=== PATIENT | female | born 1955 | race Two or more races ===

== ENCOUNTER 2016-04-22 16:48 | Inpatient (IN) | payer MEDICAID ==
[~2016-04-22] VITALS: Ht 149.9 cm; Wt 49.9 kg
[2016-04-22 18:54] LABS: BASOPHILS 0.3 % (0.0-2.0); EOSINOPHILS 0.5 % (0-7); HEMATOCRIT 42.9 % (36.0-48.0); HEMOGLOBIN 14.9 g/dL (12-16); IMMATURE GRANULOCYTES 0.1 % (0-5); LYMPHOCYTES 29.9 % (15-50); MCH 31.6 pg (26.0-34.0); MCHC 34.7 g/dL (31.0-37.0); MCV 91.1 fL (80.0-100.0); MEAN PLATELET VOLUME 10.4 fL (7.4-10.4); MONOCYTES 4.4 % (2-11); NEUTROPHILS 64.8 % (40-80); PLATELET COUNT 222 10x3/uL (130-400); RBC 4.71 10x6/uL (4.00-5.40); RDW 12.5 % (11.5-14.5); WBC 7.6 10x3/uL (4.8-10.8)
[2016-04-22 19:24] LABS: ALBUMIN 4.3 g/dL (3.4-5.0); ALKALINE PHOSPHATASE 193 U/L (46-116); ALT (SGPT) 42 U/L (10-68); BILIRUBIN - TOTAL 0.98 mg/dL (0.2-1.3); CALC OSMOLALITY 285 mosm/kg (275-300); CALCIUM 9.1 mg/dL (8.5-10.1); CARBON DIOXIDE 27.5 mmol/L (21.0-32.0); CHLORIDE - SERUM 92 mmol/L (98-107); CREATININE - SERUM 0.7 mg/dL (0.6-1.3); PROTEIN - SERUM 8.3 g/dL (6.4-8.2); SODIUM 132 mmol/L (136-145); UREA NITROGEN 10 mg/dL (7-18); eGFR NON AFRICAN AMERICAN 90 mL/min (90-120)
[2016-04-22 19:29] LABS: GLUCOSE 493 mg/dL (74-106)
[2016-04-22 22:32] LABS: APPEARANCE CLEAR (CLEAR); COLOR YELLOW (YELLOW)
[2016-04-22 22:33] LABS: BILIRUBIN NEGATIVE (NEGATIVE); GLUCOSE 1000 mg/dL (NEGATIVE); KETONE MODERATE mg/dL (NEGATIVE); LEUKOCYTE ESTERASE NEGATIVE (NEGATIVE); NITRITE NEGATIVE (NEGATIVE); PROTEIN NEGATIVE (NEGATIVE); UROBILINOGEN NORMAL (NORMAL)
[2016-04-22 23:48] LABS: HEMOGLOBIN A1C 12.6 % (4.8-6.0); THYROID STIMULATING HORMONE 0.36 uIU/mL (0.36-3.74)
--- NOTE | 2016-04-23 01:30 | NUR ---
RECEIVED PATIENT FROM [facility] TO ROOM 1219. INTRODUCED SELF. ROUTINE INITIAL ASSESSMENT AND HISTORY DONE. COMPLAINS OF EPIGASTRIC PAIN WITH Dx OF DIABETES. ORIENTED TO ROOM AND BED CONTROLS. PLAN OF CARE INITIATED.
[2016-04-23 01:32] VITALS: BP 128/70
--- NOTE | 2016-04-23 02:08 | NUR ---
PAIN LEVEL "8"/10 FROM ABD. DILAUDID 1mg IV GIVEN FOR PAIN CONTROL.
--- NOTE | 2016-04-23 04:05 | NUR ---
EYES CLOSED. LEFT UNDISTURBED.
--- NOTE | 2016-04-23 05:05 | NUR ---
PAIN LEVEL "8"/10 FROM EPIGASTRIC. DILAUDID 1mg IV GIVEN. SEE E-MAR. V/S STABLE.
[2016-04-23 05:10] VITALS: BP 133/69
--- NOTE | 2016-04-23 06:27 | NUR ---
FSBS 338mg/dl. HUMALOG INSULIN GIVEN PER SLIDING SCALE. SLEPT FAIRLY DURING THE NIGHT. CONTINUING PLAN OF CARE.
--- NOTE | 2016-04-23 07:40 | NUR ---
PT WAS RECEIVED THIS AM LYING IN BED. VSS. PT OFFERS NO COMPLAINTS. SHE STATES SHE IS A DIABETIC AND TAKES MEDS AT HOME THAT SHE IS NOT ON HERE. SHE HAS AN IV R FOREARM WHICH IS PATENT. NS INFUSING @ 125 CC/HR. HER BS EARLIER THIS AM WAS 338 AND SHE WAS GIVEN 12 UNITS OF HUMALOG INSULIN. GEN- AWAKE AND ALERT- LUNGS- CLEAR. HEART- RRR. ABD - SOFT NOT. BS + EXT- NO EDEMA. PULSES PALPABLE. BED IS LOW. CALL LIGHT IN REACH AND SIDE RAILS UP X 2.
--- NOTE | 2016-04-23 08:15 | NUR ---
PT REQUESTED PAIN MED. SHE STATES PAIN IS A 08/26. DILAUDID 1MG IV GIVEN FOR HER EPIGASTRIC AND LEFT SIDE PAIN. OTHER AM MEDS GIVEN ALSO.
[2016-04-23] MEDS ORDERED: ZESTRIL20 MG PO (10:09)
[2016-04-23] MEDS ORDERED: GLUCOVANCE 2.5-1 TAB PO (10:11)
[2016-04-23] MEDS ORDERED: NEURONTIN 300300 MG PO (10:14)
[2016-04-23] MEDS ORDERED: LEVEMIR100 U/M1 SC (10:17)
--- NOTE | 2016-04-23 10:20 | NUR ---
reviewed home medications with Kylee ROMAN with copy of med received from Kylee and again with patient per her report and reviewed after entering on med rec list. Pt denies needs at this time.
[2016-04-23 12:17] LABS: BASOPHILS 0.1 % (0.0-2.0); EOSINOPHILS 1.1 % (0-7); HEMATOCRIT 40.4 % (36.0-48.0); HEMOGLOBIN 13.9 g/dL (12-16); IMMATURE GRANULOCYTES 0.1 % (0-5); LYMPHOCYTES 37.3 % (15-50); MCH 31.3 pg (26.0-34.0); MCHC 34.4 g/dL (31.0-37.0); MONOCYTES 4.3 % (2-11); NEUTROPHILS 57.1 % (40-80); PLATELET COUNT 193 10x3/uL (130-400); RBC 4.44 10x6/uL (4.00-5.40); RDW 12.5 % (11.5-14.5); WBC 7.4 10x3/uL (4.8-10.8)
--- NOTE | 2016-04-23 12:18 | NUR ---
pt setting on side of bed states, it feels better when I set up. Pt tearful and c/o pain mid epigastric and unde left ribcage. Stabbing pain. and rates at 10 on 0-10 pain scale. C/o nausea that comes and goes. Cool rag to neck.
--- NOTE | 2016-04-23 12:22 | NUR ---
Georgina Kearney RN administering Pain medication per slow IV push.
--- NOTE | 2016-04-23 12:23 | NUR ---
CT contrast brought by Brendan and instructions given to patient.
[2016-04-23 12:32] LABS: ALBUMIN 3.9 g/dL (3.4-5.0); ALKALINE PHOSPHATASE 157 U/L (46-116); ALT (SGPT) 35 U/L (10-68); BILIRUBIN - TOTAL 0.79 mg/dL (0.2-1.3); CALCIUM 9.1 mg/dL (8.5-10.1); CARBON DIOXIDE 29.6 mmol/L (21.0-32.0); CHLORIDE - SERUM 98 mmol/L (98-107); POTASSIUM - SERUM 3.5 mmol/L (3.5-5.1); PROTEIN - SERUM 7.4 g/dL (6.4-8.2); SODIUM 135 mmol/L (136-145); UREA NITROGEN 9 mg/dL (7-18)
[2016-04-23 12:34] LABS: CALC OSMOLALITY 284 mosm/kg (275-300); CREATININE - SERUM 0.5 mg/dL (0.6-1.3); GLUCOSE 395 mg/dL (74-106); eGFR NON AFRICAN AMERICAN > 90 mL/min (90-120)
[2016-04-23 12:35] VITALS: Ht 149.9 cm; Wt 49.9 kg
[2016-04-23 12:44] LABS: AMYLASE - SERUM 34 U/L (25-115); CKMB 0.9 U/L (0.0-3.6); CREATINE KINASE 36 UL (21-215); LIPASE 74 U/L (73-393); TROPONIN-I 0.018 ng/mL (0.000-0.060)
--- NOTE | 2016-04-23 13:09 | NUR ---
AM MEDS GIVEN SOON RECEIVED FROM PHARMACY, SEE EMAR. PT GIVEN LARGE ICE WATER PER REQUEST, NO OTHER NEEDS VOICED.
--- NOTE | 2016-04-23 15:01 | NUR ---
SEE ENTRY TO ORDER FOR CONSULT TO DR GORE TO CONSULT ON PATIENT.
--- NOTE | 2016-04-23 17:11 | NUR ---
PT HAS BEEN RESTING QUIETLY FOR THE LAST HOUR OR TWO. HER PAIN HAS CALMED DOWN BUT STILL BOTHERS HER AT TIMES MIDEPIGASTRIC AREA AND ALONG RIBLINE BENEATH BREAST. SHE RECEIVED HER DINNER TRAY. BED IS LOW, SIDE RAILS UP X 2 AND CALL LIGHT IN REACH.
--- NOTE | 2016-04-23 17:29 | NUR ---
BS WAS CHECKED. 308. 20 UNITS GIVEN R ARM. DIABETA 5 MF AND NEUROTIN 900 MG GIVEN PO. METFORMIN WAS HELD PER APOLONIA MARROQUIN SINCE PT HAD CT WITH CONTRAST TODAY. APOLONIA WILL RESUME WHEN OK.
--- NOTE | 2016-04-23 18:03 | NUR ---
PT REQUESTED PAIN MED. PAIN LEVEL IS A 7. PAIN IS MID EPIGASTRIC TO LEFT RIB AREA. PT STATES THAT SHE JUST HAD DIARRHEA PRETTY LARGE. BROWN STOOL. IV PATENT R FOREARM. BED IS LOW, SIDE RAILS UIP X 2 AND CALL LIGHT IN REACH.
[2016-04-23 19:30] VITALS: BP 91/52
--- NOTE | 2016-04-23 19:30 | NUR ---
PT RECEIVED SITTING UP IN BED WATCHING TV AT THIS TIME AAOX3. BP-91/52 P-80 O2-98% R/A. RESPIRATIONS 16, EVEN, NON-LABORED. PT RATES PAIN 0/10. HEART RRR. LUNG SOUNDS CLEAR BILATERALLY. BOWEL SOUNDS ACTIVE X4 QUADRENTS. ABDOMEN SOFT NON-TENDER. IV NOTED TO RIGHT FOREARM INFUSING NS @ 125. PATENT. DRESSING CDI. PEDAL PULSES EQUAL BILATERALLY. PT REQUESTS JELLO AT THIS TIME. DENIES OTHER NEEEDS. BED LOW. PHONE AND CALL LIGHT IN REACH. SRX2.
[2016-04-23 19:51] LABS: CKMB 0.9 U/L (0.0-3.6); CREATINE KINASE 31 UL (21-215); TROPONIN-I 0.018 ng/mL (0.000-0.060)
--- NOTE | 2016-04-23 20:16 | NUR ---
PT SITTING UP IN BED WATCHING TV AT THIS TIME. REQUESTS ICE WATER AT THIS TIME. DENIES OTHER NEEDS. BED LOW. PHONE AND CALL LIGHT IN REACH. SRX2.
--- NOTE | 2016-04-23 21:08 | NUR ---
PT FSBS 246. ADMINISTERED 12 UNITS HUMALOG TO RIGHT ARM. PT REQUESTS MEDICATION FOR PAIN AT THIS TIME. DENIES OTHER NEEDS. BED LOW. PHONE AND CALL LIGHT IN REACH. SRX2.
--- NOTE | 2016-04-23 21:49 | NUR ---
ADMINISTERED DILAUDID IVP PER ORDERS AT THIS TIME FOR PAIN PT RATES /. PT POINTS AT MID-EPIGASTRIC REGION AT THIS TIME AND STATES THIS IS WHERE HER PAIN IS. PT REQUESTS SOMETHING TO EAT AT THIS TIME. CONSENTS COMPLETED FOR EGD WITH TIVA IN AM. PT DENIES FURTHER NEEDS. BED LOW. PHONE AND CALL LIGHT IN REACH. SRX2.
--- NOTE | 2016-04-23 22:12 | NUR ---
REASSESSED PTS PAIN AT THIS TIME. PT RATES PAIN /10. PT DENIES NEEDS AT THIS TIME. BED LOW. PHONE AND CALL LIGHT IN REACH. SRX2.
[2016-04-23 23:50] VITALS: BP 115/65
--- NOTE | 2016-04-23 23:50 | NUR ---
PT RESTING QUIETLY AT THIS TIME WITH EYES CLOSED. AROUSED EASILY. BP-115/65 P-86 O2-97% R/A. ADMINISTERED NEURONTIN PO PER ORDERS AND PROTONIX IVP PER ORDERS AT THIS TIME. PT DENIES NEEDS AT THIS TIME. BED LOW. PHONE AND CALL LIGHT IN REACH. SRX2.
[2016-04-24 01:27] LABS: CKMB 0.6 U/L (0.0-3.6); CREATINE KINASE 21 UL (21-215)
--- NOTE | 2016-04-24 01:44 | NUR ---
PT RESTING QUIETLY AT THIS TIME WITH EYES CLOSED . RESPIRATIONS EVEN, NON-LABORED. NO ACUTE DISTRESS NOTED AT THIS TIME. BED LOW. PHONE AND CALL LIGHT IN REACH. SRX2.
[2016-04-24 02:59] VITALS: BP 130/71
--- NOTE | 2016-04-24 03:03 | NUR ---
PT BALLET PROFESSOR LIGHT. REQUESTS MEDICATION FOR PAIN AT THIS TIME. ADMINSITERED DILAUDID IVP PER ORDERS AT THIS TIME FOR PAIN PT RATES 10/27. BP-130/71 P-76 02-98% ROOM AIR. RESPIRATIONS 20, EVEN, NON-LABORED. PT DENIES OTHER NEEDS AT THIS TIME. BED LOW. PHONE AND CALL LIGHT IN REACH. SRX2.
--- NOTE | 2016-04-24 03:22 | NUR ---
BIO MEDICAL TECHNICIAN CONSULTED REGARDING ADMINISTERING LISINOPRIL AFTER REPORTING PAST BLOOD PRESSURES. RECOMMENDATION TO CHECK BP AGAIN AT 0400 TO 0430 AND IF STILL REMAINS LOW TO HOLD MED AND IF BP ELEVATED TO ADMINISTER. Michaela LANZA RN CARING FOR PT. INFORMED.
--- NOTE | 2016-04-24 03:43 | NUR ---
REASSESSED PTS PAIN. CONTINUES TO RATE PAIN 9/10 AND POINTS TO MID EPIGASTRIC ON LEFT SIDE STATING THIS IS WHERE THE PAIN IS. PT DENIES NEEDS AT THIS TIME. BED LOW. PHONE AND CALL LIGHT IN REACH. SRX2.
--- NOTE | 2016-04-24 04:33 | NUR ---
PT RESTING QUIETLY AT THIS TIME WITH EYES CLOSED. RESPIRATIONS EVEN, NON-LABORED. NO ACUTE DISTRESS NOTED AT THIS TIME. BED LOW. PHONE AND CALL LIGHT IN REACH. SRX2.
--- NOTE | 2016-04-24 06:14 | NUR ---
PT RESTING QUIETLY AT THIS TIME WITH EYES CLOSED. AROUSED EASILY. BP- 116/58 O2-97% ROOM AIR. P-82 RESPIRATIONS-16 EVEN, NON-LABORED. PT DENIES NEEDS. BED LOW. PHONE AND CALL LIGHT IN REACH. SRX2.
[2016-04-24 06:15] VITALS: BP 116/58
[2016-04-24 06:40] LABS: BASOPHILS 0.2 % (0.0-2.0); EOSINOPHILS 1.2 % (0-7); HEMOGLOBIN 11.4 g/dL (12-16); IMMATURE GRANULOCYTES 0.2 % (0-5); LYMPHOCYTES 39.1 % (15-50); MCH 30.5 pg (26.0-34.0); MCHC 33.5 g/dL (31.0-37.0); MCV 90.9 fL (80.0-100.0); MEAN PLATELET VOLUME 10.5 fL (7.4-10.4); MONOCYTES 4.6 % (2-11); NEUTROPHILS 54.7 % (40-80); PLATELET COUNT 176 10x3/uL (130-400); RBC 3.74 10x6/uL (4.00-5.40); RDW 12.5 % (11.5-14.5); WBC 5.9 10x3/uL (4.8-10.8)
--- NOTE | 2016-04-24 06:45 | NUR ---
PT FSBS 279. ADMINISTERED 16 UNITS HUMALOG INSULIN AT THIS TIME PER ORDERS. ALSO ADMINISTERED DILAUDID IVP PER ORDERS AT THIS TIME FOR PAIN PT RATES 09/26. PT REQUESTS TOOTHBRUSH AND TOOTHPASTE AT THIS TIME. DENIES OTHER NEEDS. BED LOW. PHONE AND CALL LIGHT IN REACH. SRX2.
[2016-04-24 07:11] LABS: CALC OSMOLALITY 284 mosm/kg (275-300); CALCIUM 8.3 mg/dL (8.5-10.1); CHLORIDE - SERUM 105 mmol/L (98-107); CREATININE - SERUM 0.4 mg/dL (0.6-1.3); SODIUM 138 mmol/L (136-145); UREA NITROGEN 7 mg/dL (7-18); eGFR NON AFRICAN AMERICAN > 90 mL/min (90-120)
[2016-04-24 07:14] LABS: C-REACTIVE PROTEIN < 0.2 mg/dL (0.0-0.9); GLUCOSE 302 mg/dL (74-106)
[2016-04-24 07:30] VITALS: BP 110/64
--- NOTE | 2016-04-24 07:30 | NUR ---
PT WAS RECEIVED THIS AM LYING IN BED. SHE STATES THAT HER PAIN IS A 0 AT THIS TIME. RECEIVED DILAUDID EARLIER. PT IS GOING FOR AN EGD TODAY TO BE DONE BY DR GORE. GEN- AWAKE AND ALERT. LUNGS- CLEAR. HEART- RRR. ABD- SOFT WITH EPIGASTRIC TENDERNESS. EXT- NO EDEMA. IV PATENT R FOREARM WITH NS INFUSING AT 125 CC/HR. BED IS LOW. CALL LIGHT IN REACH. SIDE RAILS UP X 2.
[2016-04-24 08:13] LABS: ERYTHROCYTE SEDIMENTATION RATE 10 mm/hr (0-30)
--- NOTE | 2016-04-24 08:56 | NUR ---
PT BACK FROM X-RAY AM MED GIVEN.
--- NOTE | 2016-04-24 09:50 | NUR ---
GI LAB CALLED TO MAKE SURE PT WAS NPO AND CONSENTS WERE SIGNED FOR PROCEDURE AND TEVA. TOLD TO GIVE IV PEPCID ABOUT 10:30.
--- NOTE | 2016-04-24 09:51 | NUR ---
TECH'S HERE TO DO EKG ON PT. PT STATES THATAT SHE HAS HAD SEVERAL OF THESE AND DOES NOT WANT ANYMORE.
--- NOTE | 2016-04-24 10:05 | NUR ---
CALLED PHARMACY AND ASKED THEM TO BRING ME IV PEPCID TO GIVE TO HER PRE OP.
--- NOTE | 2016-04-24 10:21 | NUR ---
PEPCID 20 MG/WITH NS GIVEN IV FOR PREOP
[2016-04-24 11:27] LABS: HEMOGLOBIN A1C 14.9 % (4.8-6.0)
--- NOTE | 2016-04-24 12:35 | NUR ---
PT WAS BROUGHT BACK TO HER ROOM POST EGD. STAFF STATES THAT DR GORE FELT THAT SHE HAD GASTROPARESIS.
--- NOTE | 2016-04-24 16:37 | NUR ---
CHECKED PTS BS. FIRST READING WAS 507. REPEATED IT AND IT WAS 367. 24 UNITS OF HUMALOG GIVEN.
--- NOTE | 2016-04-24 17:43 | NUR ---
PT REQUESTED PAIN MED. DILAUDID 1 MG GIVEN IV. PT STATES PAIN IS A 9.
--- NOTE | 2016-04-24 19:40 | NUR ---
PT RESTING WITH EYES CLOSED, AROUSES TO SOFT VERBAL STIMULATION, VS OBTAINED, IV IN RIGHT FA INTACT WITH NO REDNESS OR EDEMA INFUSING VIA PUMP NS AT 125 ML/HR, PT REPORTS FLATUS, NO BM AND VOIDING BY SELF WITH NO DIFFICULTY, PT PT DENIES PAIN, REQUESTED AND SERVED ORANGE JELLO, PT DENIES FURTHER NEEDS
--- NOTE | 2016-04-24 20:15 | NUR ---
PT LAND CLASSIFIER LIGHT, PT SITTING ON COMMODE AT THIS TIME, REPORTS HAVING DIARRHEA AND NOT MAKING IT TO THE COMMODE, PT HAD IV TUBING AND GOWN WADDED UP IN PINK PAD, FECES ON THE FLOOR, COMMODE, AND ON PT, PT AND ROOM CLEANED UP WITH WET WARM WASH CLOTHS AND BABY WIPES, ROOM CLEANED AND DEODORIZED, FRESH GOWN PLACED, PT REQUESTED AND PROVIDED ADULT UNDERWEAR IN CASE SHE HAD ANOTHER ACCIDENT, BLUE SKID SOCKS PROVIDED, PT BACK TO BED, PT DENIES FURTHER NEEDS
--- NOTE | 2016-04-24 21:25 | NUR ---
FSBS AND MEDS PER JUSTO BRIONES RN, SEE EMAR
--- NOTE | 2016-04-24 21:45 | NUR ---
PT SITTING UP IN BED WATCHING TV AT THIS TIME. PT DENIES NEEDS AT THIS TIME. BED LOW. PHONE AND CALL LIGHT IN REACH. SRX2.
--- NOTE | 2016-04-24 22:17 | NUR ---
PT RESTING WITH EYES CLOSED, RESP QUIET, NO DISTRESS NOTED, LEFT UNDISTURBED AT THIS TIME
--- NOTE | 2016-04-24 23:43 | NUR ---
PT RESTING QUIETLY AT THIS TIME WITH EYES CLOSED. AROUSED EASILY. ADMINISTERED PROTONIX IVP PER ORDERS AT THIS TIME. PT DENIES NEEDS. BED LOW. PHONE AND CALL LIGHT IN REACH. SRX2.
--- NOTE | 2016-04-25 00:32 | NUR ---
PT RESTING QUIETLY AT THIS TIME. AROUSED EASILY. BP-100/53 P-76 O2-98% ON ROOM AIR. RESPIRATIONS EVEN, NON-LABORED. PT DENIES NEEDS AT THIS TIME. BED LOW. PHONE AND CALL LIGHT IN REACH. SRX2.
[2016-04-25 00:35] VITALS: BP 100/53
--- NOTE | 2016-04-25 01:33 | NUR ---
PT REQUESTS MEDICATION FOR PAIN PT RATES 09/26 AT THIS TIME AND NATI. BP-120/66 ADMINISTERED DILAUDID IVP PER ORDERS AT THIS TIME. PT DENIES FURTHER NEEDS. BED LOW. PHONE AND CALL LIGHT IN REACH. SRX2.
--- NOTE | 2016-04-25 02:05 | NUR ---
PT RESTING QUIETLY WITH EYES CLOSED AT THIS TIME. RESPIRATIONS EVEN, NON-LABORED. NO ACUTE DISTRESS NOTED AT THIS TIME. BED LOW. PHONE AND CALL LIGHT IN REACH. SRX2.
[2016-04-25 04:09] VITALS: BP 104/56
--- NOTE | 2016-04-25 04:09 | NUR ---
PT RESTING QUIETLY AT THIS TIME WITH EYES CLOSED. AROUSED EASILY. BP-104/56 P-70 O2-97% ROOM AIR, RESPIRATIONS EVEN, NON-LABORED. PT DENIES NEEDS AT THIS TIME. BED LOW. PHONE AND CALL LIGHT IN REACH. SRX2.
--- NOTE | 2016-04-25 06:00 | NUR ---
PT MECHANICAL INSPECTOR LIGHT. C/O MID EPIGASTRIC PAIN PT RATES 9/10. ADMINISTERED DILAUDID IVP PER ORDERS AT THIS TIME. PT REQUESTS JELLO AND ICE WATER. DENIES OTHER NEEDS. BED LOW. PHONE AND CALL LIGHT IN REACH. SRX2.
--- NOTE | 2016-04-25 06:16 | NUR ---
PT RESTING QUIETLY AT THIS TIME WATCHING TV. ADMINISTERED REGLAN IVP PER ORDERS AT THIS TIME. FSBS -106. PT DENIES NEEDS. BED LOW. PHONE AND CALL LIGHT IN REACH. SRX2.
[2016-04-25 06:37] LABS: BASOPHILS 0.1 % (0.0-2.0); EOSINOPHILS 1.1 % (0-7); HEMATOCRIT 34.3 % (36.0-48.0); HEMOGLOBIN 11.7 g/dL (12-16); IMMATURE GRANULOCYTES 0.3 % (0-5); LYMPHOCYTES 46.4 % (15-50); MCH 31.3 pg (26.0-34.0); MCHC 34.1 g/dL (31.0-37.0); MCV 91.7 fL (80.0-100.0); MEAN PLATELET VOLUME 11.2 fL (7.4-10.4); MONOCYTES 6.5 % (2-11); NEUTROPHILS 45.6 % (40-80); PLATELET COUNT 152 10x3/uL (130-400); RBC 3.74 10x6/uL (4.00-5.40); RDW 12.8 % (11.5-14.5)
[2016-04-25 07:15] VITALS: BP 115/61
[2016-04-25 08:33] LABS: CHLORIDE - SERUM 107 mmol/L (98-107); CREATININE - SERUM 0.4 mg/dL (0.6-1.3); SODIUM 142 mmol/L (136-145); UREA NITROGEN 6 mg/dL (7-18); eGFR NON AFRICAN AMERICAN > 90 mL/min (90-120)
[2016-04-25 08:34] LABS: CALC OSMOLALITY 281 mosm/kg (275-300); GLUCOSE 110 mg/dL (74-106)
--- NOTE | 2016-04-25 09:52 | NUR ---
PT STATES THAT SHE JUST HAD A LARGE LOOSE BM. SHE REQUESTED ANOTHER DIAPER.
--- NOTE | 2016-04-25 10:10 | NUR ---
DR CHELSEA GUEVARA'S ADVANCING DIET TO A SOFT ADA DIET.
--- NOTE | 2016-04-25 10:18 | NUR ---
PT REQUESTED PAIN MED. IV DILAUDID 1 MG GIVEN IV.
--- NOTE | 2016-04-25 13:17 | NUR ---
PT IS LYING IN BED. OFFERS NO COMPLAINTS. GETTING UP TO GO TO BATHROOM. SHE ENJOYED BEING OFF CLEAR LIQUIDS AND EATING A SOFT DIET. BED IS LOW, SIDE RAILS UP X 2 AND CALL LIGHT IN REACH.
--- NOTE | 2016-04-25 13:29 | NUR ---
DR TRAN IS HERE TO SEE PT. HE DISCUSSED DISCHARGING HER HOME TOMM. NEW ORDERS REVIEWED.
--- NOTE | 2016-04-25 14:18 | NUR ---
PT IS SLEEPING COMFORTABLY. HER MOTHER AND BROTHER ARE AT BEDSIDE. BED IS LOW. SIDE RAILS UP X 2 AND CALL LIGHT IN REACH.
--- NOTE | 2016-04-25 15:36 | NUR ---
PT IS SLEEPING. OFFERS NO COMPLAINTS. BED IS LOW. SIDE RAILS UP X 2 AND CALL LIGHT IN REACH.
--- NOTE | 2016-04-25 17:55 | NUR ---
PT TOLERATED DINNER. PT OFFERS NO COMPLAINTS. IV PATENT R FOREARM WITH NS INFUSING AT 125 CC/HR. BED IS LOW, SIDE RAILS UP X 2 AND CALL LIGHT IN REACH.
--- NOTE | 2016-04-25 19:40 | NUR ---
PT RECEIVED LYING IN BED RESTING QUIETLY WITH EYES CLOSED. AROUSED EASILY. VSS. IV NOTED TO RIGHT FOREARM INFUSING NS @ 125 CC/HR. PATENT. DRESSING CDI. HEART RRR. LUNG SOUNDS CLEAR BILATERALLY. BOWEL SOUNDS ACTIVE X4 QUADRENTS. PEDAL PULSES EQUAL BILATERALLY. PT RATES PAIN 0/10 AT THIS TIME. DENIES NEEDS. BED LOW. PHONE AND CALL LIGHT IN REACH. SRX2.
[2016-04-25 19:43] VITALS: BP 125/69
--- NOTE | 2016-04-25 20:00 | NUR ---
PT RESTING QUIETLY AT THIS TIME WITH EYES CLOSED. AROUSED EASILY. DENIES NEEDS. BED LOW. PHONE AND CALL LIGHT IN REACH. SRX2.
--- NOTE | 2016-04-25 20:04 | CN ---
PATIENT NAME:ZAINAB CALDERON MEDICAL RECORD: [id number] : 55 LOCATION:[facility] D.1219 ADMIT DATE: 04/22/16 ACCOUNT: [id number] CONSULTING PHYSICIAN: PHAN CAGE MD REFERRING PHYSICIAN: ARTEM DAMON MD DATE OF CONSULTATION: 04/23/2016 REFERRING PHYSICIAN: Artem Damon MD HISTORY OF PRESENT ILLNESS: The patient is a 61-year-old female with hypertension, diabetes, basically admitted with recurrent problems with epigastric, left upper quadrant pain, eventually associated with nausea. She apparently was at [facility] several weeks ago with the same presentation there and they kept her there for a week or so and without a sure diagnosis. She presented here and had complete negative workup so far including CT of the abdomen, abdominal x-ray, CBC, CMP, amylase and lipase. She denies any NSAID use. I was asked to see the patient in this regard. PAST MEDICAL HISTORY: As above. PAST SURGICAL HISTORY: Remarkable for cholecystectomy and hysterectomy. CURRENT HOME MEDICATIONS: Include Zestril, glyburide, Neurontin, and Levemir. FAMILY HISTORY: Negative for GI disease. SOCIAL HISTORY: The patient is a nonsmoker, nondrinker. REVIEW OF SYSTEMS: Noncontributory other than in the HPI. PHYSICAL EXAMINATION: GENERAL: Reveals a well-developed, well-nourished white female, in mild distress. VITAL SIGNS: Stable. She is afebrile. CHEST: Clear. HEART: Regular rate and rhythm. ABDOMEN: Soft with mild to moderate tenderness in the epigastric, left upper quadrant. EXTREMITIES: No edema. LABORATORY DATA: Unremarkable, as noted above including a CBC, electrolytes, BUN, creatinine, liver enzymes. Her hemoglobin A1c is horrible at 14.9. IMPRESSION: Recurrent epigastric left upper quadrant pain of unclear etiology, rule out peptic ulcer disease. This might just all be related to her poorly controlled diabetes. RECOMMENDATIONS: 1. EGD. 2. Check a sed rate, C-reactive protein and chest x-ray. TRANSINT:[id number] Voice Confirmation ID: [id number] DOCUMENT ID: [id number] CONSULT REPORT [id number] ZAINAB CALDERON PHAN CAGE MD at 2004 CC: ARTEM DAMON MD [id number] DICTATION DATE: 04/24/16 1159 ASSOCIATE TECHNICIAN: 04/24/161951 ADM IN [facility] [address] [place] [address]
--- NOTE | 2016-04-25 20:04 | PRO ---
PATIENT:ZAINAB CALDERON MEDICAL RECORD: [id number] : 55 LOCATION:[facility]1219 ADMISSION DATE: 04/22/16 PROCEDURE PERFORMED BY: PHAN BAKER MD DATE OF PROCEDURE: 04/24/2016 DATE OF PROCEDURE: 04/24/2016. RETAIL PRESENTATION SPECIALIST: Phan Baker MD. PROCEDURE: EGD with biopsy. INDICATION: The patient is a 61-year-old white female with hypertension and very poorly controlled diabetes with a hemoglobin A1c of 14.9 who was admitted with recurrent problems with epigastric left upper quadrant pain and nausea. Apparently, he was at [facility] a few weeks ago with same presentation was there for about a week or so without a definitive diagnosis. She arrived here and has had a CT of the abdomen, chest x-ray, abdominal series all unremarkable. She has had her gallbladder out. Her liver enzymes, amylase, lipase, CBC and BMP are all normal. Sed rates normal. Glucose was 400. She is now for EGD. PREMEDICATION: Taper anesthesia. INSTRUMENT: Olympus video gastroscope. FINDINGS: The endoscope was passed through the oropharynx to the second portion of duodenum without difficulty. The esophagus was completely normal, without any signs of esophagitis. However, stomach was entered and was remarkable for minimal diffuse gastritis associated with a significant amount of old food left in the stomach. The pylorus was widely patent without obstruction. Biopsies were obtained from the antrum to rule out H. pylori by means of histology. The duodenum was entered and was normal without any obstructive process or ulcerations seen. The patient tolerated the procedure well without complication. IMPRESSION: 1. Obvious gastroparesis, probably due to poorly controlled diabetes. 2. Minimal gastritis. 3. Otherwise, normal esophagogastroduodenoscopy. RECOMMENDATIONS: 1. Check KUB to rule out obstipation. 2. Start IV Reglan for now. 3. She needs diabetic education probably referral to an athletic turf worker. 4. Follow up biopsy results. TRANSINT:[id number] Voice Confirmation ID: [id number] DOCUMENT ID: [id number] PROCEDURE NOTE [id number] ZAINAB CALDERON PHAN BAKER MD at 2004 CC: JAMIL DAMON MD [id number] DICTATION DATE: 04/24/16 1210 APPLICATION SPECIALIST: 04/25/[address] [facility] [address] [place] [address]
--- NOTE | 2016-04-25 21:23 | NUR ---
PT RESTING QUIETLY AT THIS TIME WITH EYES CLOSED. AROUSED EASILY. PT FSBS 179 AT THIS TIME. DENIES NEEDS. BED LOW. PHONE AND CALL LIGHT IN REACH. SRX2.
--- NOTE | 2016-04-25 21:53 | NUR ---
PT REQUESTS MEDICATION FOR PAIN 08/26 AT THIS TIME. ADMINISTERED DILAUDID IVP PER ORDERS AT THIS TIME. ADMINISTERED 8 UNITS INSULIN HUMALOG AT THIS TIME FOR FSBS OF 179 TO RIGHT ARM. ALSO ADMINISTERED 15 UNITS INSULIN LEVEMIR TO ABD RLQ. PT REQUESTS SANDWICH AND JELLO AT THIS TIME. DENIES OTHER NEEDS. BED LOW. PHONE AND CALL LIGHT IN REACH. SRX2.
--- NOTE | 2016-04-25 22:37 | NUR ---
PT UP USING RESTROOM AT THIS TIME. REASSESSED PAIN AT THIS TIME. PT RATES PAIN 0/10. DENIES NEEDS.
--- NOTE | 2016-04-25 23:22 | NUR ---
ADMINISTERED PROTONIX IVP PER ORDERS AT THIS TIME. PT SITTING UP IN BED WATCHING TV. DENIES NEEDS. BED LOW. PHONE AND CALL LIGHT IN REACH. SRX2.
[2016-04-25 23:31] VITALS: BP 156/73
--- NOTE | 2016-04-26 00:21 | NUR ---
PT SITTING UP IN BED WATCHING TV AT THIS TIME. ADMINISTERED REGLAN IVP PER ORDERS AT THIS TIME. PT REQUESTS CUP OF ICE. DENIES OTHER NEEDS.
--- NOTE | 2016-04-26 03:20 | NUR ---
PT SITTING UP IN BED WATCHING TV AT THIS TIME. DENIES NEEDS. BED LOW. PHONE AND CALL LIGHT IN REACH. SRX2.
[2016-04-26 04:06] VITALS: BP 149/76
--- NOTE | 2016-04-26 04:07 | NUR ---
PT RESTING QUIETLY AT THIS TIME WATCHING TV. VSS. PT DENIES NEEDS AT THIS TIME. BED LOW. PHONE AND CALL LIGHT IN REACH. SRX2.
--- NOTE | 2016-04-26 05:09 | NUR ---
PT SITTING UP WATCHING TV AT THIS TIME. DENIES NEEDS. BED LOW. PHONE AND CALL LIGHT IN REACH. SRX2.
--- NOTE | 2016-04-26 06:26 | NUR ---
PT FSBS 300 AT THIS TIME.
--- NOTE | 2016-04-26 06:38 | NUR ---
ADMINISTERED 16 UNITS INSULIN HUMALOG TO LEFT ARM AT THIS TIME FOR FSBS OF 300. PT DENIES NEEDS. BED LOW. PHONE AND CALL LIGHT IN REACH. SRX2.
--- NOTE | 2016-04-26 07:37 | NUR ---
PT SITTING IN BED EATING. STATES PAIN 4 ON NUMERIC SCALE BUT REFUSES MEDICATION. S/R UP X 2, BED IN LOWEST POSITION, CALL LIGHT WITHIN REACH. WILL CONTINUE TO MONITOR.
[2016-04-26 07:53] LABS: BASOPHILS 0.2 % (0.0-2.0); EOSINOPHILS 1.8 % (0-7); HEMATOCRIT 32.4 % (36.0-48.0); HEMOGLOBIN 10.8 g/dL (12-16); IMMATURE GRANULOCYTES 0.2 % (0-5); MCH 30.5 pg (26.0-34.0); MCHC 33.3 g/dL (31.0-37.0); MCV 91.5 fL (80.0-100.0); MEAN PLATELET VOLUME 10.4 fL (7.4-10.4); MONOCYTES 5.3 % (2-11); NEUTROPHILS 43.5 % (40-80); PLATELET COUNT 158 10x3/uL (130-400); RBC 3.54 10x6/uL (4.00-5.40); RDW 12.6 % (11.5-14.5)
[2016-04-26 07:55] LABS: WBC 5.1 10x3/uL (4.8-10.8)
--- NOTE | 2016-04-26 08:03 | NUR ---
PT RESTING WITH EYES CLOSED. EASILY AWAKEN. STATES NO NEEDS AT THIS TIME.
[2016-04-26 08:10] LABS: ALBUMIN 2.5 g/dL (3.4-5.0); ALKALINE PHOSPHATASE 103 U/L (46-116); ALT (SGPT) 41 U/L (10-68); AMYLASE - SERUM 33 U/L (25-115); BILIRUBIN - TOTAL 0.31 mg/dL (0.2-1.3); CALC OSMOLALITY 281 mosm/kg (275-300); CALCIUM 8.3 mg/dL (8.5-10.1); CARBON DIOXIDE 29.4 mmol/L (21.0-32.0); CHLORIDE - SERUM 103 mmol/L (98-107); CREATININE - SERUM 0.5 mg/dL (0.6-1.3); LIPASE 55 U/L (73-393); POTASSIUM - SERUM 3.3 mmol/L (3.5-5.1); PROTEIN - SERUM 5.3 g/dL (6.4-8.2); SODIUM 138 mmol/L (136-145); UREA NITROGEN 7 mg/dL (7-18); eGFR NON AFRICAN AMERICAN > 90 mL/min (90-120)
[2016-04-26 08:12] LABS: GLUCOSE 241 mg/dL (74-106)
--- NOTE | 2016-04-26 08:55 | NUR ---
PT ASSESSMENT DONE AND WILL DOCUMENT. STATES PAIN LEVEL 7 ON NUMERIC SCALE. WILL GET RN TO GIVE IV PUSH MEDICATION.
--- NOTE | 2016-04-26 09:00 | NUR ---
RN TO ROOM TO GIVE IV PUSH PAIN MEDICATION, DILAUDED ORDERED AND PERSCRIBED. FRESH WATER AND ICE PROVIDED AT THIS TIME. WILL REASSESS FOR RELIEF OF PAIN. STATES NO FURTHER NEEDS AT THIS TIME.
--- NOTE | 2016-04-26 09:36 | NUR ---
STATES PAIN 2 ON NUMERIC SCALE AND THAT SHE FEELS MUCH BETTER. CONTACTED DR TO CHANGE TO PO MEDICATIONS SINCE PLAN IS TO DISCHARGE THIS AFTERNOON. ORDERS ARE IN. PT STATES NO FURTHER NEEDS AT THIS TIME.
[2016-04-26] MEDS ORDERED: REGLAN10 MG PO (10:59)
[2016-04-26] MEDS ORDERED: PROTONIX40 MG PO (10:59)
[2016-04-26 11:23] VITALS: BP 140/64
[2016-04-26 11:24] VITALS: BP 138/72
--- NOTE | 2016-04-26 11:30 | NUR ---
FINGER STICK BLOOD SUGAR OF 181. WILL ADMINISTER HUMALOG ORDERED. DID PARTIAL LINEN CHANGE WHEN PT WAS IN BR. STATES NO NEEDS AT THIS TIME.
--- NOTE | 2016-04-26 11:45 | NUR ---
ADMINISTERED 8 UNITS OF HUMALOG ORDERED. LUNCH TO BE HERE MOMENTARILY. DAUGHTER AT BEDSIDE. PT STATES THE WISH TO GO HOME. FRESH ICE PROVIDED.
--- NOTE | 2016-04-26 12:45 | NUR ---
PT UP TO BR. DAUGHTER AT BEDSIDE. STATES NO TROUBLES VOIDING AND THAT PAIN IS GONE. 0 ON NUMERIC SCALE. STATES NO FURTHER NEEDS.
--- NOTE | 2016-04-26 13:17 | NUR ---
DC'd S/L. TIP INTACT, TOLERATED WELL. STATES READY TO GO.
--- NOTE | 2016-04-26 14:00 | NUR ---
WENT OVER DISCHARGE INSTRUCTIONS. PROVIDED PRESCRIPTIONS AND WENT OVER ALL INSTRUCTIONS FOR DISCHARGE. PT STATES UNDERSTANDING. PROVIDED WHEELCHAIR AND PT WHEELED OUT TO FRONT WHERE DAUGHTER WAITED WITH CAR.
== END 2016-04-26 14:28 | disposition home or self-care (01) | DRG 74 ==
LOC: D.ER 16:48 → D.WS 23:10
PROVIDERS: Emergency Medicine; Internal Medicine Gastroenterology; ADMIT Family Medicine Adult Medicine
PROC: 0DB68ZX Excision of Stomach, Via Natural or Artificial Opening Endoscopic, Diagnostic (ICD-10-PCS; principal; 2016-04-24 11:00)
DX: E11.43 Type 2 diabetes mellitus with diabetic autonomic (poly)neuropathy (principal); E11.65 Type 2 diabetes mellitus with hyperglycemia; K31.84 Gastroparesis; Z79.4 Long term (current) use of insulin; D64.9 Anemia, unspecified; K29.70 Gastritis, unspecified, without bleeding; I10 Essential (primary) hypertension

== ENCOUNTER 2016-05-30 20:41 | Inpatient (IN) | payer OTHER ==
[~2016-05-30] VITALS: Ht 149.9 cm; Wt 52.2 kg
[~2016-05-30 20:41] MED LIST: GLUCOVANCE 2.5-1 TAB PO; LEVEMIR100 U/M1 SC; NEURONTIN 300300 MG PO; PROTONIX40 MG PO; REGLAN10 MG PO; ZESTRIL20 MG PO
[2016-05-30 21:28] LABS: BASOPHILS 0.1 % (0.0-2.0); EOSINOPHILS 0.7 % (0-7); HEMATOCRIT 36.3 % (36.0-48.0); HEMOGLOBIN 12.1 g/dL (12-16); IMMATURE GRANULOCYTES 0.4 % (0-5); LYMPHOCYTES 22.5 % (15-50); MCH 31.7 pg (26.0-34.0); MCHC 33.3 g/dL (31.0-37.0); MEAN PLATELET VOLUME 10.9 fL (7.4-10.4); MONOCYTES 2.9 % (2-11); NEUTROPHILS 73.4 % (40-80); RBC 3.82 10x6/uL (4.00-5.40); RDW 12.7 % (11.5-14.5); WBC 8.2 10x3/uL (4.8-10.8)
[2016-05-30 21:36] LABS: KETONE - SERUM SMALL mg/dL (NEGATIVE)
[2016-05-30 21:37] LABS: PLATELET COUNT 243 10x3/uL (130-400)
[2016-05-30 21:46] LABS: ALBUMIN 3.3 g/dL (3.4-5.0); ALKALINE PHOSPHATASE 311 U/L (46-116); ALT (SGPT) 458 U/L (10-68); AMYLASE - SERUM 35 U/L (25-115); BILIRUBIN - TOTAL 0.42 mg/dL (0.2-1.3); CALCIUM 8.8 mg/dL (8.5-10.1); CARBON DIOXIDE 20.8 mmol/L (21.0-32.0); CHLORIDE - SERUM 103 mmol/L (98-107); CREATININE - SERUM 0.6 mg/dL (0.6-1.3); LIPASE 132 U/L (73-393); POTASSIUM - SERUM 4.3 mmol/L (3.5-5.1); PROTEIN - SERUM 6.9 g/dL (6.4-8.2); SODIUM 139 mmol/L (136-145); UREA NITROGEN 18 mg/dL (7-18); eGFR NON AFRICAN AMERICAN > 90 mL/min (90-120)
[2016-05-30 21:50] LABS: CALC OSMOLALITY 303 mosm/kg (275-300); GLUCOSE 524 mg/dL (74-106)
[2016-05-31] MEDS ORDERED: KEFLEX500 MG PO (02:14)
--- NOTE | 2016-05-31 02:47 | NUR ---
PT RECEIVED FROM ER. DIAGNOSIS OF COMMON BILE DUCT OBSTRUCTION, PT NOTED TO BE ON A CLEAR LIQUID DIET. IV 18G NOTED TO LEFT FOREARM, PATENT, DRESSING CLEAN, DRY AND INTACT, NO REDNESS OR EDEMA NOTED TO SITE. PT NOTED TO HAVE ORDERS FOR NS @ 125. PT I SALERT AND ORIENTED X4. PT LAST RECEIVED PRN DILAUDID AND ZOFRAN IN ER @ 0000, ORDER IS FOR [id number] PRN. PT STATES PAIN IS ALREADY RETURNING. PT STATES, "I MEANT TO TALK TO DR. PHILLIPS BEFORE LEAVING THE ER ABOUT GETTING THE ZOFRAN AND DILAUDID EVERY 3 HOURS INSTEAD OF EVERY 4. WILL YOU PLEASE CALL HIM FOR ME?" THIS CIRCULATION MAN CALLED ER AND SPOKE WITH DR PHILLIPS, NEW ORDERS RECEIVED TO CHANGE DILAUDID AND ZOFRAN FROM Q4HPRN TO Q3HPRN. PT ORIENTED TO ROOM AND CALL LIGHT. CALL LIGHT AND H2O IN PT REACH. BED IN LOW POSITION. SIDE RAILS UP X2.
[2016-05-31 03:00] VITALS: BP 159/73; BMI 23.2
--- NOTE | 2016-05-31 04:01 | NUR ---
RN NOTE: ADMISSION ASSESSMENT COMPLETE PER FLOWSHEET. ORIENTED PT TO ROOM AND CALL LIGHT. WARM BLANKET AND ICE WATER GIVEN PER REQUEST. WILL MONITOR CLOSLEY FOR NEEDS.
--- NOTE | 2016-05-31 06:33 | NUR ---
PT NOTIFIED OF ORDERS TO RECEIVE UA. PT VERBALIZED UNDERSTANDING. PT PROVIDED WITH CLEAN CATCH KIT, PT STATES SHE WILL NOTIFY NURSE NEXT TIME SHE NEEDS TO USE THE RESTROOM.
[2016-05-31 08:04] VITALS: BP 103/77
--- NOTE | 2016-05-31 08:46 | NUR ---
PT SEEN AND ASSESSED. COMPLAINTS OF PAIN TO ABDOMEN 4/10 ON SCALE. STATES TENDER TO TOUCH IN EPIGASTRIC REGION. NO N/V AT PRESENT. NPO FOR XRAYS THIS AM. CALL LIGHT IN REACH
[2016-05-31 10:49] LABS: BASOPHILS 0.3 % (0.0-2.0); EOSINOPHILS 2.9 % (0-7); HEMATOCRIT 31.6 % (36.0-48.0); HEMOGLOBIN 10.6 g/dL (12-16); IMMATURE GRANULOCYTES 0.2 % (0-5); LYMPHOCYTES 48.2 % (15-50); MCH 31.8 pg (26.0-34.0); MCHC 33.5 g/dL (31.0-37.0); MCV 94.9 fL (80.0-100.0); MEAN PLATELET VOLUME 10.7 fL (7.4-10.4); MONOCYTES 5.2 % (2-11); NEUTROPHILS 43.2 % (40-80); PLATELET COUNT 206 10x3/uL (130-400); RBC 3.33 10x6/uL (4.00-5.40); RDW 12.8 % (11.5-14.5); WBC 6.5 10x3/uL (4.8-10.8)
--- NOTE | 2016-05-31 10:52 | NUR ---
Patient Name: ZAINAB CALDERON Admission Status: ER Accout number: [id number] Admission Date: 05-31-2016 : 1955 Admission Diagnosis: Attending: JEFFERSON Current LOS: 1 Anticipated DC Date: 06-03-2016 Planned Disposition: Home Primary Insurance: [employer]ICA[employer] Discharge Planning Comments: CM MET WITH PATIENT REGARDING D/C NEEDS AND PLANS. PATIENT STATED SHE LIVES ALONE BUT HER DAUGHTER (LEXX HADDAD) CHECKS WITH HER DAILY. PATIENT STATED HER DAUGHTER WILL DRIVE HER HOME AT DISCHARGE. PATIENT DOES NOT HAVE ANY STEPS OR STAIRS AT HER HOME. PATIENT STATED SHE IS INDEPENDENT WITH HER CARE AND HAS ONLY A GLUCOMETER (CHECKS 2X DAILY). PATIENT STATED SHE BROKE HER GLUCOMETER AND IS GETTING A NEW ONE WHEN DISCHARGED. PATIENTS PCP IS DR. ROMERO AND PHARMACY IS [facility] IN [place]. PATIENT STATED SHE DID NOT NEED HOME HEALTH. CM WILL CONTINUE TO FOLLOW PATIENT WITH D/C NEEDS AND PLANS. PCP DR. ROMERO [facility] [phone] LEXX HADDAD (DAUGHTER) [phone] Chip Machine Operator: Lenora Abrams Is the patient Alert and Oriented? Yes 0 * How many steps to enter\exit or inside your home? 0 0 * PCP DR. ROMERO 0 * Pharmacy [facility] [phone] 0 * Preadmission Environment Home Alone 0 * ADLs Independent 0 * Equipment Glucometer 0 * List name and contact numbers for known caregivers / representatives who currently or will assist patient after discharge: LEXX HADDAD (DAUGHTER) [phone] * Community resources currently utilized None 0 * Additional services required to return to the preadmission environment? Yes 0 * Can the patient safely return to the preadmission environment? Yes 0 * Has this patient been hospitalized within the prior 30 days at any hospital? No 0 Grand Total: 0
[2016-05-31 11:01] LABS: ALBUMIN 2.7 g/dL (3.4-5.0); ALKALINE PHOSPHATASE 202 U/L (46-116); ALT (SGPT) 319 U/L (10-68); CALC OSMOLALITY 281 mosm/kg (275-300); CALCIUM 8.1 mg/dL (8.5-10.1); CARBON DIOXIDE 25.2 mmol/L (21.0-32.0); CHLORIDE - SERUM 102 mmol/L (98-107); CREATININE - SERUM 0.6 mg/dL (0.6-1.3); GLUCOSE 309 mg/dL (74-106); POTASSIUM - SERUM 4.1 mmol/L (3.5-5.1); PROTEIN - SERUM 5.9 g/dL (6.4-8.2); SODIUM 135 mmol/L (136-145); UREA NITROGEN 12 mg/dL (7-18); eGFR NON AFRICAN AMERICAN > 90 mL/min (90-120)
[2016-05-31 12:45] VITALS: BP 115/49
[2016-05-31 13:15] LABS: APPEARANCE CLEAR (CLEAR); BILIRUBIN NEGATIVE (NEGATIVE); COLOR YELLOW (YELLOW); EPITHELIAL CELLS 0-5 /hpf (0-5); GLUCOSE 1000 mg/dL (NEGATIVE); KETONE NEGATIVE (NEGATIVE); LEUKOCYTE ESTERASE TRACE (NEGATIVE); NITRITE NEGATIVE (NEGATIVE); PROTEIN NEGATIVE (NEGATIVE); RED CELLS - URINE OCC /hpf (0-5); SPECIFIC GRAVITY 1.015 (1.005-1.020); UROBILINOGEN NORMAL (NORMAL)
[2016-05-31 13:16] LABS: BACTERIA FEW /hpf (NONE SEEN)
[2016-05-31 13:32] VITALS: Ht 149.9 cm; Wt 52.2 kg
[2016-05-31 16:10] VITALS: BP 118/56
--- NOTE | 2016-05-31 18:30 | NUR ---
IV RIGHT FOREARM TENDER WITH SOME SWELLING.IV DCD WITH CATH INTACT.RESITED TO RIGHT HAND X2 STICKS.TOLERATED CL DIET FOR DINNER.PAIN MEDS PER MAR.CONT PLAN OF CARE.
--- NOTE | 2016-05-31 19:30 | NUR ---
PT RECEIVED SITTING UP IN BED WATCHING TELEVISION. ASSESSMENT COMPLETED, SEE SHIFT ASSESSMENT. PT DENIES NEEDS AT THIS MOMENT. STATES ABD PAIN TO BE 3/10 AT THIS TIME. CALL LIGHT AND H2O IN PT REACH. BED IN LOW POSITION. SIDE RAILS UP X2.
[2016-05-31 20:33] VITALS: BP 97/54
[2016-06-01 00:17] VITALS: BP 87/50
--- NOTE | 2016-06-01 05:51 | NUR ---
PT IS AWAKE AND NURSE IS IN THE ROOM WITH THE PATIENT . RESPIRATIONS ARE GOOD AND THE PT IS IN A GOOD MOOD. THE BED IS LOW, RAILS UP X;S 2 WITH THE CALL LIGHT AT HAND.
[2016-06-01 06:54] LABS: BASOPHILS 0.4 % (0.0-2.0); EOSINOPHILS 2.1 % (0-7); HEMATOCRIT 32.1 % (36.0-48.0); HEMOGLOBIN 10.7 g/dL (12-16); IMMATURE GRANULOCYTES 0.2 % (0-5); MCH 31.8 pg (26.0-34.0); MCHC 33.3 g/dL (31.0-37.0); MCV 95.5 fL (80.0-100.0); MEAN PLATELET VOLUME 10.6 fL (7.4-10.4); MONOCYTES 4.8 % (2-11); NEUTROPHILS 58.5 % (40-80); PLATELET COUNT 193 10x3/uL (130-400); RBC 3.36 10x6/uL (4.00-5.40); RDW 12.6 % (11.5-14.5); WBC 8.1 10x3/uL (4.8-10.8)
--- NOTE | 2016-06-01 07:00 | NUR ---
REPORT RECEIVED FROM CORPORATE BUYER NURSE. CALL LIGHT IN REACH.
[2016-06-01 07:15] LABS: ALBUMIN 2.8 g/dL (3.4-5.0); ALKALINE PHOSPHATASE 178 U/L (46-116); BILIRUBIN - TOTAL 0.56 mg/dL (0.2-1.3); CARBON DIOXIDE 23.5 mmol/L (21.0-32.0); CHLORIDE - SERUM 105 mmol/L (98-107); CREATININE - SERUM 0.5 mg/dL (0.6-1.3); POTASSIUM - SERUM 3.9 mmol/L (3.5-5.1); PROTEIN - SERUM 5.8 g/dL (6.4-8.2); SODIUM 137 mmol/L (136-145); UREA NITROGEN 10 mg/dL (7-18); eGFR NON AFRICAN AMERICAN > 90 mL/min (90-120)
[2016-06-01 07:16] LABS: ALT (SGPT) 226 U/L (10-68); CALC OSMOLALITY 278 mosm/kg (275-300); GLUCOSE 210 mg/dL (74-106)
[2016-06-01 07:22] LABS: HEPATITIS C ANTIBODY <0.1 (0.0-0.9)
--- NOTE | 2016-06-01 07:52 | NUR ---
ASSESSMENT COMPLETED. PASSWORD OBTAINED. DILAUDID AND ZOFRAN IVP PER PATIENT REQUEST. SCANNED MEDS THEN PUT THEM IN THE SHARPS. AFTERWARDS, WAS UNABLE TO SUBMIT THEM SO I HAD TO CLICK ON THEM AND HIT DOCUMENT. CALL LIGHT IN REACH. WILL CONTINUE WITH PLAN OF CARE.
[2016-06-01 08:24] VITALS: BP 110/50
--- NOTE | 2016-06-01 09:40 | NUR ---
AM MEDS ADMINISTERED. OFFERED SCDs AND EXPLAINED IMPORTANCE BUT PATIENT REFUSED. INCENTIVE SPIROMETER GIVEN TO PATIENT AND EXPLAINED USE WITH RETURN DEMONSTRATION. TUBING TAGGED. [place] HAT PLACED IN BR TO MEASURE OUTPUT. CALL LIGHT IN REACH. WILL CONTINUE WITH PLAN OF CARE.
--- NOTE | 2016-06-01 09:58 | NUR ---
EXPLAINED TO PATIENT THAT SHE WILL NEED TO GET UP AND MOVE AROUND MORE IF SHE DOES NOT WANT THE SCDs. STATES, "GIVE THEM TO ME BECAUSE I AM NOT GETTING UP WALKING AROUND." SCDs APPLIED TO BLE. DEMONSTRATED HOW TO REMOVE THEM WHEN GETTING UP GOING TO THE BR. VERBALIZED UNDERSTANDING.
--- NOTE | 2016-06-01 11:15 | NUR ---
REGLAN PO AND DILAUDID IV PER ORDER. CALL LIGHT IN REACH.
--- NOTE | 2016-06-01 11:20 | NUR ---
PATIENT ALERT IN BED. RESPIRATIONS EVEN AND UNLABORED. SIDE RAILS UP X2. BED IN LOW POSITION. CALL LIGHT IN REACH.
--- NOTE | 2016-06-01 11:27 | NUR ---
FSBS 283 SO 10 UNITS REGULAR INSULIN SUBQ TO RIGHT ARM. CALL LIGHT IN REACH.
[2016-06-01 12:14] VITALS: BP 162/63
--- NOTE | 2016-06-01 13:08 | NUR ---
KEFLEX 500 MG PO. STATES PAIN IS NOW A 4. ABOUT TO TAKE A SHOWER.
--- NOTE | 2016-06-01 14:24 | NUR ---
OUT OF SHOWER. REQUESTING PAIN MED. DILAUDID 1 MG SIVP. NEW BAG OF IV FLUIDS INITIATED. NEURONTIN PO.
--- NOTE | 2016-06-01 16:20 | NUR ---
NO NEEDS VOICED AT THIS TIME. CALL LIGHT IN REACH.
[2016-06-01 16:30] VITALS: BP 123/63
--- NOTE | 2016-06-01 17:43 | NUR ---
10 UNITS INSULIN D/T BLOOD SUGAR OF 273.
--- NOTE | 2016-06-01 18:05 | NUR ---
NO CHANGES IN INITIAL ASSESSMENT. SCDs TO BLE. CALL LIGHT IN REACH. WILL CONTINUE WITH PLAN OF CARE.
[2016-06-01 20:00] VITALS: BP 144/68
[2016-06-01 20:07] LABS: ANA REFLEX - DIRECT Negative (Negative)
[2016-06-02] VITALS: BP 133/64
--- NOTE | 2016-06-02 01:58 | NUR ---
REC'D PATIENT STANDING UP JUST COMING BACK FROM THE BATHROOM TALKING TO HER SON. STATED SHE WANTED A PAIN AND WANTED HER PAIN MEDICATION. DENIED FURTHER NEEDS AT THIS TIME. NO DISTRESS NOTED. INTRUCTED TO CALL IF NEEDED ANYTHING. BED LOW, LOCKED, CALL LIGHT IN REACH.
--- NOTE | 2016-06-02 03:15 | NUR ---
PATIENT IS RESTING IN BED COMFORTABLY. NO DISTRESS NOTED. GAVE HER SOME BRIEFS SHE WANTED. DENIES FURTHER NEEDS. BED LOW, LOCKED, CALL LIGHT IN REACH.
[2016-06-02 04:00] VITALS: BP 99/39
--- NOTE | 2016-06-02 04:37 | NUR ---
PATIENT RESTING WITH EYES CLOSED. NO VISBLE SIGNS OF DISTRESS. BED IN LOWEST POSITION AND CALL LIGHT WITHIN REACH.
[2016-06-02 05:30] LABS: BASOPHILS 0.2 % (0.0-2.0); EOSINOPHILS 0.4 % (0-7); HEMATOCRIT 32.2 % (36.0-48.0); HEMOGLOBIN 10.7 g/dL (12-16); IMMATURE GRANULOCYTES 0.2 % (0-5); MCH 31.7 pg (26.0-34.0); MCHC 33.2 g/dL (31.0-37.0); MCV 95.3 fL (80.0-100.0); MEAN PLATELET VOLUME 10.5 fL (7.4-10.4); MONOCYTES 4.9 % (2-11); NEUTROPHILS 75.3 % (40-80); PLATELET COUNT 184 10x3/uL (130-400); RBC 3.38 10x6/uL (4.00-5.40); RDW 12.3 % (11.5-14.5); WBC 9.2 10x3/uL (4.8-10.8)
[2016-06-02 05:56] LABS: ALBUMIN 2.6 g/dL (3.4-5.0); ALKALINE PHOSPHATASE 187 U/L (46-116); ALT (SGPT) 173 U/L (10-68); BILIRUBIN - TOTAL 0.56 mg/dL (0.2-1.3); CALCIUM 7.7 mg/dL (8.5-10.1); CARBON DIOXIDE 25.5 mmol/L (21.0-32.0); CHLORIDE - SERUM 109 mmol/L (98-107); PROTEIN - SERUM 5.6 g/dL (6.4-8.2); SODIUM 143 mmol/L (136-145)
[2016-06-02 05:57] LABS: CALC OSMOLALITY 280 mosm/kg (275-300); CREATININE - SERUM 0.3 mg/dL (0.6-1.3); GLUCOSE 74 mg/dL (74-106); UREA NITROGEN 5 mg/dL (7-18); eGFR NON AFRICAN AMERICAN > 90 mL/min (90-120)
--- NOTE | 2016-06-02 07:45 | NUR ---
WALKING ROUNDS.ASSESSMENT PER FLOW SHEET.PT WITHOUT DISTRESS.CALL LIGHT IN REACH.
[2016-06-02 08:14] VITALS: BP 124/60
--- NOTE | 2016-06-02 12:00 | NUR ---
REMAINS WITHOUT NEEDS.CALL LIGHT IN REACH
[2016-06-02 12:44] VITALS: BP 137/64
[2016-06-02 15:50] VITALS: BP 147/65
--- NOTE | 2016-06-02 17:30 | NUR ---
PAIN MEDS ORDERED PER APR.PT REMAINS WITHOUT DOISTRESS.CALL LIGHT IN REACH.CONT PLAN OF CARE
[2016-06-02 19:00] VITALS: BP 148/71
[2016-06-03] VITALS: BP 146/70
--- NOTE | 2016-06-03 02:10 | NUR ---
EYES CLOSED RESPIRATIONS WITH EASE AND UNLABORED.
--- NOTE | 2016-06-03 02:23 | NUR ---
PATIENT HAS RAN A SLIGHT FEVER TONIGHT STARTED WITH 100.6 AND DROPPED TO 99.9. IS STILL C/O PAIN IN EPIGASTRIC AREA. TX WITH DIL Q3. ALERT AND ORIENTED X4. STATED THAT PAIN IS AT 9/10 WITH OUT PAIN MEDS AND DROPS TO 5/10 WITH PAIN MEDS. IS STILL HAVING LOOSE STOOLS. DENIES FURTHER NEEDS AT THIS TIME. INSTRUCTED TO CALL IF NEEDED ANYTHING VERBALIZED UNDERSTANING BED LOW, LOCKED, CALL LIGHT IN REACH.
[2016-06-03 04:00] VITALS: BP 154/70
--- NOTE | 2016-06-03 05:43 | NUR ---
PATIENT IS RESTING IN BED. NO DISTRESS NOTED. STATES PAIN IS 9/10. WILL ADMINISTER MEDS PRESCRIBED. DENIES FURTHER NEEDS AT THIS TIME. INSTRUCTED TO CALL IF NEEDED ANYTHING.
[2016-06-03 06:09] LABS: BASOPHILS 0.2 % (0.0-2.0); EOSINOPHILS 1.4 % (0-7); HEMATOCRIT 34.4 % (36.0-48.0); HEMOGLOBIN 11.4 g/dL (12-16); IMMATURE GRANULOCYTES 0.2 % (0-5); LYMPHOCYTES 21.1 % (15-50); MCH 31.5 pg (26.0-34.0); MCHC 33.1 g/dL (31.0-37.0); MONOCYTES 5.3 % (2-11); NEUTROPHILS 71.8 % (40-80); PLATELET COUNT 203 10x3/uL (130-400); RBC 3.62 10x6/uL (4.00-5.40); RDW 12.1 % (11.5-14.5); WBC 8.6 10x3/uL (4.8-10.8)
[2016-06-03 06:53] LABS: ALBUMIN 2.7 g/dL (3.4-5.0); ALKALINE PHOSPHATASE 176 U/L (46-116); ALT (SGPT) 131 U/L (10-68); CALCIUM 8.2 mg/dL (8.5-10.1); CARBON DIOXIDE 27.6 mmol/L (21.0-32.0); CHLORIDE - SERUM 105 mmol/L (98-107); GLUCOSE 105 mg/dL (74-106); PROTEIN - SERUM 5.9 g/dL (6.4-8.2); SODIUM 141 mmol/L (136-145)
[2016-06-03 06:54] LABS: CALC OSMOLALITY 276 mosm/kg (275-300); CREATININE - SERUM 0.4 mg/dL (0.6-1.3); UREA NITROGEN 2 mg/dL (7-18); eGFR NON AFRICAN AMERICAN > 90 mL/min (90-120)
[2016-06-03 06:56] LABS: POTASSIUM - SERUM 2.5 mmol/L (3.5-5.1)
[2016-06-03 08:34] VITALS: BP 141/60
[2016-06-03 11:25] VITALS: BP 139/68
[2016-06-03 15:40] VITALS: BP 154/76
[2016-06-03 16:12] LABS: MITOCHONDRIAL ANTIBODY 3.5 Units (0.0-20.0); SMOOTH MUSCLE ABS (ACTIN) 5 Units (0-19)
--- NOTE | 2016-06-03 16:54 | NUR ---
RECEIVED PATIENT TO ROOM 1214 VIA WHEELCHAIR, ACCOMPANIED BY 2 RESIDENTIAL SALES EXECUTIVE. HER POSTURE IS STRAIGHT AND SHE IS ABLE TO TRANSFER SELF FROM TO THE BED. SHE STATES THAT DR. MUNROE HAS BEEN TO SEE HER AND ORDERED A ONE TIME SHOT FOR HER PAIN CONTROLL AND ASKED IF I WOULD PLEASE LOOK INTO IT. 2MG MS GIVEN VIA RIGHT HAND IV. NEW ORDERS RECEIVED FOR MAINTANENCE IVF. SPOKE WITH PHARMACY TO REQUEST NIGHT TIME MEDICATIONS. PATIENT RATED HER PAIN A 9, STATES THAT THE ORAL MEDICATION DID NOTHING FOR HER DISCOMFORT. SHE DISAGREES WITH CHANGING HER PAIN MEDICATION FROM THE IV ROUTE. EDUCATED HER ABOUT HOW THE NARCOTICS COMPLICATES THE GASTROPARESIS BY SLOWING THE GUT DOWN EVEN MORE. SHE ACTUALLY ROLLED HER EYES AND STATED THAT SHE IS DIEING FROM THE PAIN AND FEELS THAT SHE SHOULD BE KEPT COMFORTABLE WHILE IN THE HOSPITAL. ASKED IS HEAT HELPS THE PAIN, SHE STATES THAT HEAT MAKES THINGS WORSE. SHE HASN'T TRIED ICE AND DOESN'T WANT TO. ENCOURAGED HER TO TRY TO REST AND FOCUS ON SOMETHING DISTRACTING. CALL LIGHT GIVEN, INSTRUCTED TO CALL IF HER PAIN WORSENS AND EXPLAINED THAT WE WOULD BE REPLACING HER ELECTROLYTES TONIGHT VIA HER IV. SHE VOICED UNDERSTANDING AND REPORTS THAT SHE HASN'T HAD ANYTHING SOLID TO EAT SINCE FRIDAY AND DENIES WANTING ANYTHING TO DRINK AT THIS TIME.
--- NOTE | 2016-06-03 17:24 | NUR ---
POTASSIUM REPLACEMENT BEGUN. PLACED ON TELEMETRY. SR 82 FSBS NOTED. PATIENT CURENTLY REFUSING CL MEAL.
--- NOTE | 2016-06-03 18:00 | NUR ---
MEDICATIONS TAKEN WITH CLEAR ENSURE.
--- NOTE | 2016-06-03 18:20 | NUR ---
PATIENT RESTING WITH HOB UP 45 DEGREES. SHE IS DOZING, AWAKENS EASILY. AIR CONDITIONER ADJUSTED TO MEET HER NEEDS, WARM BLANKET APPLIED.
--- NOTE | 2016-06-03 18:56 | NUR ---
PATIENT DISCHARGED TO WOMENS UNIT.
[2016-06-03 19:15] VITALS: BP 145/71
--- NOTE | 2016-06-03 19:15 | NUR ---
AWAKE DURING INITIAL ROUNDS. INTRODUCED SELF. V/S TAKEN. ASSESSMENT DONE. STATUS Dx: GASTROPARESIS. IVF--NS+ 40mEq KCl TO R HAND. IV SITE OK.
--- NOTE | 2016-06-03 19:31 | NUR ---
PAIN LEVEL FROM ABD "10"/10. DILAUDID 1mg IV GIVEN. ZOFRAN 4mg IV GIVEN FOR NAUSEA.
--- NOTE | 2016-06-03 19:35 | NUR ---
MgS04 RIDER STARTED.
--- NOTE | 2016-06-03 20:18 | NUR ---
K+ RIDER STARTED PER ELECTROLYE PROTOCOL.
--- NOTE | 2016-06-03 21:25 | NUR ---
FSBS 200mg/dl. HUMALOG 2 units GIVEN PER SLIDING SCALE.
--- NOTE | 2016-06-03 21:30 | NUR ---
HS MEDS GIVEN. SEE E-MAR.
--- NOTE | 2016-06-03 21:53 | NUR ---
K+ RIDER STARTED PER PROTOCOL.
--- NOTE | 2016-06-03 22:31 | NUR ---
CALL LIGHT ANSWERED. PAIN LEVEL 5/10. NORCO 5/325 1tab PO GIVEN FOR PAIN CONTROL.
--- NOTE | 2016-06-03 23:15 | NUR ---
LAST DOSE OF K+ RIDER STARTED.
[2016-06-04 00:40] VITALS: BP 137/70
--- NOTE | 2016-06-04 00:40 | NUR ---
V/S RECHECKED--STABLE. LAST K+ RIDER INFUSED.
--- NOTE | 2016-06-04 02:34 | NUR ---
EYES CLOSED. LEFT UNDISTURBED.
--- NOTE | 2016-06-04 03:07 | NUR ---
CALL LIGHT ANSWERED. PAIN LEVEL "8"/10 FROM ABD. DILAUDID 1mg IV GIVEN FOR PAIN MANAGEMENT. V/S RECHECKED.
[2016-06-04 03:09] VITALS: BP 149/77
--- NOTE | 2016-06-04 05:25 | NUR ---
PORTABLE KUB DONE.
--- NOTE | 2016-06-04 06:15 | NUR ---
ARCHITECT NAVAL HERE TO DRAW AM LAB.
--- NOTE | 2016-06-04 06:19 | NUR ---
FSBS 84mG/dl. NO INSULIN GIVEN PER SLIDING SCALE. REGLAN AND PROTONIX MED GIVEN. SEE E-MAR.
--- NOTE | 2016-06-04 06:26 | NUR ---
CALL LIGHT ANSWERED. PAIN LEVEL "9"/10. NORCO 1tab PO GIVEN FOR PAIN CONTROL. SLEPT FAIRLY DURING THE NIGHT. CONTINUING PLAN OF CARE.
[2016-06-04 06:58] LABS: BASOPHILS 0.3 % (0.0-2.0); EOSINOPHILS 4.2 % (0-7); HEMATOCRIT 30.4 % (36.0-48.0); HEMOGLOBIN 10.4 g/dL (12-16); IMMATURE GRANULOCYTES 0.2 % (0-5); LYMPHOCYTES 37.4 % (15-50); MCH 32.1 pg (26.0-34.0); MCHC 34.2 g/dL (31.0-37.0); MCV 93.8 fL (80.0-100.0); MEAN PLATELET VOLUME 10.9 fL (7.4-10.4); MONOCYTES 6.8 % (2-11); NEUTROPHILS 51.1 % (40-80); PLATELET COUNT 189 10x3/uL (130-400); RBC 3.24 10x6/uL (4.00-5.40); RDW 12.3 % (11.5-14.5)
--- NOTE | 2016-06-04 07:00 | NUR ---
SHIFT REPORT GIVEN TO MICHAEL LAGUNAS.
[2016-06-04 07:10] VITALS: BP 116/54
--- NOTE | 2016-06-04 07:10 | NUR ---
PT WAS RECEIVED THIS AM LYING IN BED. AWAKE AND ALERT. APPEARS TO BE SAD. PT STATES SHE IS HERE FOR THE SAME THING. STATES THAT SHE IS HAVING MID EPIGASTRIC PAIN AND LEFT RIB PAIN. STATES SHE HAS NAUSEA AT TIMES. SHE STATES THAT SHE IS TIRED OF CLEAR LIQUIDS. LUNGS- CLEAR. HEART- RRR. ABD- SOFT, WITH MID EPIGASTRIC TENDERNESS. BS + EXT- WARM AND DRY. PULSES PALPABLE. BED IS LOW, SIDE RAILS UP X 2 AND CALL LIGHT IS IN REACH.
[2016-06-04 07:33] LABS: HEMOGLOBIN A1C 11.4 % (4.8-6.0)
[2016-06-04 07:52] LABS: ALBUMIN 2.4 g/dL (3.4-5.0); ALKALINE PHOSPHATASE 131 U/L (46-116); AMYLASE - SERUM 19 U/L (25-115); CALC OSMOLALITY 285 mosm/kg (275-300); CALCIUM 7.9 mg/dL (8.5-10.1); CARBON DIOXIDE 30.3 mmol/L (21.0-32.0); CHLORIDE - SERUM 111 mmol/L (98-107); CREATININE - SERUM 0.4 mg/dL (0.6-1.3); GLUCOSE 88 mg/dL (74-106); LIPASE 61 U/L (73-393); PROTEIN - SERUM 5.3 g/dL (6.4-8.2); SODIUM 146 mmol/L (136-145); THYROID STIMULATING HORMONE 0.57 uIU/mL (0.36-3.74); UREA NITROGEN 2 mg/dL (7-18); eGFR NON AFRICAN AMERICAN > 90 mL/min (90-120)
[2016-06-04 07:53] LABS: ALT (SGPT) 93 U/L (10-68); POTASSIUM - SERUM 3.1 mmol/L (3.5-5.1)
--- NOTE | 2016-06-04 08:15 | NUR ---
PT CALLED AND STATED THAT SHE HAD AN ACCIDENT. SHE HAD LOOSE STOOL IN BED. STOOL WAS BROWN AND THERE APPEARED TO BE SOME BLOOD TINGED LIQUID SOAKED INTO BED PAD AND HER GOWN. LINENS AND GOWN CHANGED AND PT CLEANED UP. STOOL COLLECTED FOR STOOL STUDIES.
--- NOTE | 2016-06-04 10:36 | NUR ---
Nutrition Consult/Follow Up: Consult received for DM education. Pt reported that she was in a great deal of pain. She said that she has had DM for years and is familiar with information. Pt requested that written information be left in room. RD encouraged pt to contact RD with any questions. Pt is eating 75% meal avg on a clear liquid diet. Wt stable. I>O. +BM 06/03/16. Labs reviewed - Glucose continues elevated; Hgb A1C 11.4. Meds noted including NS KCl @ 75 ml/hr, Metformin, Humalog, Levemir, Glyburide, Reglan, Zofran. Rec advancing diet as tolerated when medically feasible. RD will continue to monitor pt progress.
--- NOTE | 2016-06-04 11:15 | NUR ---
PTS 1100 MEDS GIVEN. BS CHECKED WHICH WAS 118. PT HAS BEEN SLEEPING. PAIN IS A 6. BED IS LOW, SIDE RAILS UP X 2 AND CALL LIGHT IN REACH.
--- NOTE | 2016-06-04 11:32 | NUR ---
BS WAS 118 INSULIN NOT GIVEN.
--- NOTE | 2016-06-04 12:10 | NUR ---
DR ANDERSON IS HERE TO SEE PT. NEW ORDERS NOTED.
--- NOTE | 2016-06-04 12:18 | NUR ---
NG UNCLAMPED AND PUT BACK TO LOW INTERMITTENT SUCTION. PT BACK TO BED. SIDE RAILS UP, BED IS LOW AND CALL LIGHT IN REACH. NG CANISTER CHANGED OUT. 600 CC OUTPUT.
--- NOTE | 2016-06-04 13:56 | NUR ---
PT IS ASLEEP. AWAKENED TO GIVE HER HER KEFLEX 500MG PO. NO COMPLAINTS OFFERED.
--- NOTE | 2016-06-04 15:23 | NUR ---
PT REQUEST PAIN MED. PAIN LEVEL IS A 9/10. C/O MID EPIGASTRIC PAIN.
--- NOTE | 2016-06-04 16:17 | NUR ---
PT IS RESTING. OFFERS NO COMPLAINTS. BED IS LOW, SIDE RAILS UP X 2 AND CALL LIGHT ON REACH.
--- NOTE | 2016-06-04 16:51 | NUR ---
PTS BS CHECKED. 250. GIVEN 4 UNITS SUB CU OF HUMALOG LEFT ARM.
--- NOTE | 2016-06-04 17:47 | NUR ---
PT TOLERATED CLEAR LIQUID DIET. SHE ASKED FOR PAIN MED. GIVEN NORCO 10/325 MG. STATES JOHANNA PAIN IS AN 8. PT IS SITTING UP IN CHAIR.
[2016-06-04 19:05] VITALS: BP 151/78
--- NOTE | 2016-06-04 19:05 | NUR ---
AWAKE DURING INITIAL ROUNDS. RE-INTRODUCED SELF. V/S AND ASSESSMENT DONE. STATUS Dx: GASTROPARESIS/UNCONTROLLED DIABETES. IVF NS+40mEq KCl TO R HAND. IV SITE OK. PAIN RE-ASSESSED: 05/27. FOR UPPER GI & SMALL BOWEL FOLLOW THROUGH IN AM. NPO AFTER MIDNIGHT. PT AWARE.
--- NOTE | 2016-06-04 20:09 | NUR ---
SERUM K+ 3.1 TODAY. POTASSIUM 40mEq KCl PO GIVEN PER ELECTROLYTE PROTOCOL.
--- NOTE | 2016-06-04 21:12 | NUR ---
PAIN LEVEL FROM ABD 09/26. DILAUDID 1mg IV GIVEN. HS MEDS GIVEN. SEE E-MAR.
--- NOTE | 2016-06-04 21:19 | NUR ---
FSBS @ HS: 353mg/dl. HUMALOG 10units SQ GIVEN. SEE E-MAR.
[2016-06-04 22:53] VITALS: BP 122/70
--- NOTE | 2016-06-04 22:59 | NUR ---
PAIN LEVEL "8"/10. NORCO 10/325 1tab PO GIVEN FOR PAIN CONTROL. V/S RE-CHECKED.
--- NOTE | 2016-06-04 23:20 | NUR ---
CHICKEN BROTH AND JELLO GIVEN PER PT's REQUEST. NPO AFTER MIDNIGHT REINFORCED. VERBALIZED UNDERSTANDING.
--- NOTE | 2016-06-05 00:26 | NUR ---
STEM THRESHING MACHINE OPERATOR HERE TO DRAW K+ LEVEL PER ELECTROLYTE PROTOCOL.
--- NOTE | 2016-06-05 03:12 | NUR ---
CALL LIGHT ANSWERED. PAIN LEVEL "9"/10 FROM ABD. DILAUDID 1mg IV GIVEN FOR PAIN MANAGEMENT.
[2016-06-05 03:14] VITALS: BP 110/59
--- NOTE | 2016-06-05 06:02 | NUR ---
SLEPT FAIRLY WELL DURING THE NIGHT. CONTINUING PLAN OF CARE.
--- NOTE | 2016-06-05 06:15 | NUR ---
PAINTING INSTRUCTOR HERE TO DRAW AM LAB. FSBS 66mg/dl. NO INSULIN GIVEN PER SLIDING SCALE. PROTONIX / REGLAN / NORCO 10/325 1taB PO GIVEN WITH A SIP OF APPLE JUICE.
[2016-06-05 06:33] LABS: HEMATOCRIT 29.8 % (36.0-48.0); HEMOGLOBIN 9.9 g/dL (12-16); MCH 31.8 pg (26.0-34.0); MCHC 33.2 g/dL (31.0-37.0); MEAN PLATELET VOLUME 10.7 fL (7.4-10.4); PLATELET COUNT 205 10x3/uL (130-400); RBC 3.11 10x6/uL (4.00-5.40); RDW 12.5 % (11.5-14.5); WBC 4.8 10x3/uL (4.8-10.8)
[2016-06-05 06:48] LABS: MCV 95.8 fL (80.0-100.0)
[2016-06-05 07:15] LABS: ALBUMIN 2.6 g/dL (3.4-5.0); ALKALINE PHOSPHATASE 164 U/L (46-116); ALT (SGPT) 99 U/L (10-68); BILIRUBIN - TOTAL 0.33 mg/dL (0.2-1.3); CALCIUM 7.9 mg/dL (8.5-10.1); CARBON DIOXIDE 27.3 mmol/L (21.0-32.0); CHLORIDE - SERUM 110 mmol/L (98-107); CREATININE - SERUM 0.3 mg/dL (0.6-1.3); LIPASE 53 U/L (73-393); MAGNESIUM - SERUM 1.5 mg/dL (1.8-2.4); PHOSPHOROUS 2.8 mg/dL (2.5-4.9); PROTEIN - SERUM 5.3 g/dL (6.4-8.2); SODIUM 145 mmol/L (136-145); eGFR NON AFRICAN AMERICAN > 90 mL/min (90-120)
[2016-06-05 07:19] LABS: AMYLASE - SERUM 34 U/L (25-115); CALC OSMOLALITY 283 mosm/kg (275-300); GLUCOSE 60 mg/dL (74-106); UREA NITROGEN 3 mg/dL (7-18)
[2016-06-05 07:50] VITALS: BP 106/58
--- NOTE | 2016-06-05 07:50 | NUR ---
RECEIVED IN BED X2 SIDE RAILS UP. CALL LIGHT WITHIN REACH. PT C/O DISCOMFORT UNDER LT LOWER RIBS WITH EPIGASTRIC PAIN. NOTED RECENT DOSE FOR PAIN (MED). PT TEARFUL. NOT TIME FOR DILAUDID IV. +BS X4 QUAD. LUNGS CLEAR TO AUSCULTATION. PT AMBULATED SELF TO BATHEROOM PRN. IV PATENT TO RT HAND.
[2016-06-05 08:03] LABS: ANISOCYTOSIS OCC; BASOPHILS 1 % (0.0-2.0); EOSINOPHILS 4 % (0-7); HYPOCHROMASIA OCC; LYMPHOCYTES 48 % (15-50); MONOCYTES 5 % (2-11); NEUTROPHILS 40 % (40-80); PLATELET ESTIMATE NORMAL; PLATELET MORPHOLOGY PLT CLUMPS PRESENT
--- NOTE | 2016-06-05 08:06 | NUR ---
LINENS CHANGE WHILE PT IN RADIOLOGY
--- NOTE | 2016-06-05 10:07 | NUR ---
PT STILL HAS NOT RETURNED FROM RADIOLOGY
--- NOTE | 2016-06-05 11:05 | NUR ---
RETURNED VIA W/C FROM RADIOLOGY. IV RECONNECTED. SITE WITHOUT EDEMA OR ERYTHEMA. PREP FOR MEDS TO BE GIVEN. PT C/O PAIN UPPER ABD AND BACK. REQUESTED IV MED FOR PAIN.
--- NOTE | 2016-06-05 12:49 | NUR ---
PT UP TO BR. PT STATES "I HAD AN ACCIDENT". PT C/O LIQUID STOOL. BED LINENS CHANGED. GOWN CHANGED. PARTIAL SPONGE BATH PER PT DONE.
--- NOTE | 2016-06-05 14:00 | NUR ---
CALLED FOR [facility] E[place] PROTOCOL FROM PHARM.
--- NOTE | 2016-06-05 14:11 | NUR ---
IN BED. RESTING. FEELING COLD. WARM BLANKET TO PT
--- NOTE | 2016-06-05 14:22 | NUR ---
CM MET WITH PATIENT TO VERIFY DISCHARGE PLANNING / NEEDS. PATIENT STATES THAT HER PREFERENCE AT DISCHARGE IS TO RETURN HOME. DOES NOT ANTICIPATE ANY DISCHARGE PLANNING / NEEDS AT THIS TIME. CM WILL CONTINUE TO FOLLOW AND ASSIST NEEDED WITH DISCHARGE PLANNING / NEEDS.
[2016-06-05 15:20] VITALS: BP 116/60
--- NOTE | 2016-06-05 16:31 | NUR ---
REMAINS IN BED. NO DISTRESS NOTED . IV PATENT
--- NOTE | 2016-06-05 17:15 | NUR ---
AGAIN CALLED FOR MED FOR ELECT.PORTOCOL.
--- NOTE | 2016-06-05 18:36 | NUR ---
PT REPORTS 2 MORE STOOLS CONSIST. CHANGING TO MORE SOLID. AMBULATING IN NERI. STATES SHE IS NOT HAPPY ABOUT MED CHANGES ( IV DILAUDID D/C AND NORCO CHANGED FROM 10MG TO 5MG.
--- NOTE | 2016-06-05 19:28 | NUR ---
PM ROUNDS MADE, PT WATCHING TV, INFORMED PT THAT I WILL BE BACK SHORTLY TO DO ASSESSMENT, PT VERBALIZES UNDERSTANDING, DENIES NEEDS AT THIS TIME
[2016-06-05 20:00] VITALS: BP 134/61
--- NOTE | 2016-06-05 20:00 | NUR ---
UPON ENTERING ROOM, PT IS TEARY EYED, REQUESTS PAIN MED, INFORMED PT THAT PAIN MED WASN'T DUE AT THIS TIME AND THAT THE ORDER WAS CHANGED TO EVERY 8 HOURS, PT VERY UPSET OVER THAT, ASKED ME IF I WOULD CALL THE DOCTOR, INFORMED PT THAT I WILL BUT DIDN'T KNOW IF THEY WOULD CHANGE IT OR NOT SINCE THEY JUST PUT THAT NEW ORDER IN, PT STATES "IT WAS THE NURSE PRACTITIONER THAT DID THAT", INFORMED PT THAT I WILL HAVE TO TALK TO WHOEVER IS DUMPER OPERATOR, PT VERBALIZES UNDERSTANDING, ASSESSMENT PER FLOW SHEET, VS OBTAINED, IV IN RIGHT HAND INTACT WITH NO REDNESS OR EDEMA INFUSING VIA PUMP NS WITH KCL AT 75 ML/HR, PT REPORTS FLATUS, SEVERAL BM'S TODAY, AND VOIDING BY SELF WITH NO DIFFICULTY, PT DENIES FURTHER NEEDS AT THIS TIME
--- NOTE | 2016-06-05 20:24 | NUR ---
PT AMB, GAIT STEADY, TO VENDING MACHINE
--- NOTE | 2016-06-05 20:27 | NUR ---
PT BACK TO ROOM
--- NOTE | 2016-06-05 20:28 | NUR ---
APOLONIA LLANOS, NURSE PRACTITIONER PAGED
--- NOTE | 2016-06-05 20:33 | NUR ---
APOLONIA LLANOS NP, CALLS UNIT, REPORT OF PT'S PAIN AND REQUEST OF PAIN MED TO BE ADM MORE OFTEN, APOLONIA LLANOS NP TO CALL OTHER NURSE PRACTITIONER AND WILL CALL ME BACK
--- NOTE | 2016-06-05 21:03 | NUR ---
APOLONIA LLANOS NP, CALLS UNIT, ORDER FOR A 1 TIME DOSE OF NORCO 5 NOW
--- NOTE | 2016-06-05 21:18 | NUR ---
PT AWAKE, FSBS 216, PT INFORMED OF ONE TIME DOSE OF NORCO AT THIS TIME, PT NOT HAPPY ABOUT IT, STATES "THEY ACT LIKE THEY ARE GOING TO GO BROKE OVER THIS, BUT THATS OK, I'LL TAKE MY MEDICINE LIKE I DO WHEN I GET HOME", INFORMED PT THAT I WILL BE BACK IN A FEW MINUTES WITH MEDS, PT VERBALIZES UNDERSTANDING
--- NOTE | 2016-06-05 21:24 | NUR ---
ADM MEDS PO PER MD ORDERS, ADM HUMALOG IN RIGHT ARM, PT REQUESTED TO ADM LEVEMIR PER SELF IN LEFT ARM, PT DENIES FURTHER NEEDS
--- NOTE | 2016-06-05 22:33 | NUR ---
NEW BAG OF NS WITH KCL HUNG PER MD ORDERS, SEE EMAR
--- NOTE | 2016-06-05 22:45 | NUR ---
PT REPORTS THAT IV IS HURTING, IV INTACT WITH NO REDNESS OR EDEMA, INFORMED PT THAT I CAN REMOVE IV, BUT WILL HAVE TO RESTART ANOTHER IV, PT STATES "I'M NOT HAVING ANOTHER IV DONE, YOU CAN FORGET IT, I WANT THIS IV OUT NOW BECAUSE IT IS HURTING"
--- NOTE | 2016-06-05 22:49 | NUR ---
APOLONIA LLANOS NP, PAGED
--- NOTE | 2016-06-05 22:50 | NUR ---
APOLONIA LLANOS, STACIA CALLS UNIT, REPORT OF PTS C/O IV AND THAT SHE REFUSES TO HAVE ANOTHER ONE RESTARTED, ORDERS TO D/C IV
--- NOTE | 2016-06-05 22:53 | NUR ---
IV REMOVED, TIP INTACT, PRESSURE HELD, BANDAID APPLIED, PT REPORTS VOIDING TWICE IN [place] HAT, EMPTIED 1100 MLS OF CLEAR YELLOW URINE, RED BAG AND TRASH REMOVED, PT TEARY EYED, C/O ABD PAIN, INFORMED PT THAT I WILL ADM NEXT DOSE OF PAIN MED WHEN DUE, PT STATES "FINE, I'M GOING HOME IN THE MORNING BECAUSE ITS LIKE NO ONE CARES WHETHER I AM HURTING OR NOT", INFORMED PT THAT I AM DOING MY BEST TO KEEP HER COMFORTABLE, ATTEMPTED TO DO OTHER METHODS OF PAIN CONTROL, LIKE RELAXATION METHOD, PT WAS NOT COOPERATIVE ABOUT IT, JUST WANTS HER PAIN PILLS, PT DENIES FURTHER NEEDS
--- NOTE | 2016-06-05 23:13 | NUR ---
PT ANTISQUEAK APPLIER LIGHT, UPON ENTERING ROOM, PT SITTING ON SIDE OF BED, REQUESTED AND SERVED CUP OF ICE AND ALSO PLACED ICE IN PT'S CUP OF [place] PER HER REQUEST, PT DENIES FURTHER NEEDS
--- NOTE | 2016-06-06 00:25 | NUR ---
PT AMB TO N[facility]MENT CENTER AND BACK TO ROOM, GAIT STEADY
[2016-06-06 01:16] VITALS: BP 142/82
--- NOTE | 2016-06-06 01:16 | NUR ---
PT AWAKE, WATCHING TV, C/O UL ABD PAIN, RATES 10, ADM NORCO PO PER MD ORDERS, SEE EMAR, NEW LEADS PLACED ON TELEMETRY, PT REQUESTED OVERHEAD LIGHTS OFF, PT DENIES FURTHER NEEDS
--- NOTE | 2016-06-06 02:13 | NUR ---
PT RESTING WITH EYES CLOSED, RESP QUIET, NO DISTRESS NOTED, LEFT UNDISTURBED AT THIS TIME
--- NOTE | 2016-06-06 02:43 | NUR ---
PT AMB IN NERI, GAIT STEADY, TO NOURISHMENT DEL RIO, PT THEN TO DESK, REPORTS THAT [facility] IS FULL, THIS RN TO ROOM, EMPTIED 1200 MLS OF CLEAR YELLOW URINE FROM [facility], PT REPORTS THAT IS 3 VOIDS, PT BACK TO BED WITH SNACK, DENIES FURTHER NEEDS
--- NOTE | 2016-06-06 04:20 | NUR ---
PT RESTING WITH EYES CLOSED, RESP QUIET, NO DISTRESS NOTED, LEFT UNDISTURBED AT THIS TIME
--- NOTE | 2016-06-06 05:10 | NUR ---
RADIOLOGY OBTAINED KUB
[2016-06-06 05:27] VITALS: BP 148/74
--- NOTE | 2016-06-06 05:27 | NUR ---
VS OBTAINED, PT DENIES NEEDS AT THIS TIME, PT STATES TO ME "I AM GOING HOME TODAY WHETHER THEY LIKE IT OR NOT"
--- NOTE | 2016-06-06 06:30 | NUR ---
PT AWAKE, FSBS 334, ADM 0600 MEDS PO WITH FRESH H20, EMPTIED 700 MLS OF CLEAR YELLOW URINE FROM [place] HAT, PT THEN UP TO BR, GAIT STEADY, BACK TO BED, PT INQUIRES ABOUT PAIN MED, INFORMED PT IT WAS DUE AT 0915, PT NOT HAPPY ABOUT GETTING PAIN MED EVERY 8 HOURS, INFORMED PT THAT I WILL LET [facility] KNOW WHEN IT IS DUE, PT DENIES FURTHER NEEDS
[2016-06-06 06:45] LABS: CALCIUM 8.9 mg/dL (8.5-10.1); CARBON DIOXIDE 30.8 mmol/L (21.0-32.0); CHLORIDE - SERUM 99 mmol/L (98-107); POTASSIUM - SERUM 4.2 mmol/L (3.5-5.1); SODIUM 137 mmol/L (136-145)
[2016-06-06 06:54] LABS: CALC OSMOLALITY 287 mosm/kg (275-300); CREATININE - SERUM 0.6 mg/dL (0.6-1.3); GLUCOSE 399 mg/dL (74-106); UREA NITROGEN 4 mg/dL (7-18); eGFR NON AFRICAN AMERICAN > 90 mL/min (90-120)
--- NOTE | 2016-06-06 07:00 | NUR ---
SHIFT REPORT TO [facility] SWEENEY RN
[2016-06-06 07:15] VITALS: BP 181/97
--- NOTE | 2016-06-06 07:15 | NUR ---
PT WAS RECEIVED LYING IN BED THIS AM. PT IS CRYING. SHE STATES SHE IS HURTING. SHE STATES HER PAIN MED HAS BEEN CHANGED. SHE WAS ON DILAUDID 1 MG Q 6 H AND NORCO 10 Q 4H. SHE STATES YESTERDAY THAT HER DILAUDID WAS D'CD AND HER NORCO 10 WAS CHANGED TO NORCO 5 Q 8 H. SHE STATES THAT LOPEZ BARKSDALE WITH DR ANDERSON WAS CONTACTED LAST NIGHT AND GAVE HER AN EXTRA NORCO 5 MG. SHE STATES THAT THIS HAS NOT CONTROLLED HER PAIN. GEN- AWAKE AND ALERT. LUNGS- CLEAR. HEART- RRR. ABD- SOFT BS+. EXT-NO EDEMA NOTED. HER IV INFILTRATED LAST PM AND WAS D'CD. SHE REFUSED TO HAVE ANOTHER ONE PLACED. SHE HAS BEEN VOIDING. 1000 CC LIGHT YELLOW URINE DISCARDED THIS AM. PT HAS CONTINUED TO HAVE LOOSE STOOLS. BED IS LOW. SIDE RAILS UP X 2 AND CALL LIGHT IN REACH.
--- NOTE | 2016-06-06 08:00 | NUR ---
PT IS STILL CRYING. C/O PAIN. I CALLED APOLONIA LLANOS AND SHE RETURNED MY CALL. SHE STATES THAT I CAN GIVE HER ANOTHER NORCO 5 WITH HER NEXT DOSE OF PAIN MED. SHE STATES THAT SHE TALKED TO JESSIE AGUIRRE WITH DR ANDERSON AND THAT THEY WILL ADDRESS THIS THIS AM.
--- NOTE | 2016-06-06 09:00 | NUR ---
PT C/O PAIN BEING A 10. PAIN MED GIVEN.
--- NOTE | 2016-06-06 09:46 | NUR ---
PT STATES THAT HER PAIN IS NOW ABOUT A FIVE. PRIOR TO PAIN MED IT WAS A 10.
--- NOTE | 2016-06-06 10:59 | NUR ---
PT IS SLEEPING. BED IS LOW, SIDE RAILS UP X 2 AND CALL LIGHT IN REACH.
--- NOTE | 2016-06-06 11:03 | NUR ---
Nutrition Follow Up: Pt reported that she was "up all night with pain." She said that her appetite is okay. She denied any pain with eating. RD asked pt if she had any questions regarding diabetic diet and she said that she did not. Pt is eating 88% meal avg on a diabetic diet. I<O. +BM 06/05/16. No new wt to assess. Labs reviewed - Glucose continues elevated. Meds noted including Levemir, Metformin, Humalog, Glyburide, Zofran, Reglan. Rec continue current diet. Will continue to provide selective menus and honor food preferences within diet ordered. RD will continue to monitor pt progress.
--- NOTE | 2016-06-06 11:49 | NUR ---
PT IS RESTING IN BED. OFFERS NO COMPLAINTS. PAIN IS STILL ABOUT A 5.
--- NOTE | 2016-06-06 12:48 | NUR ---
JESSIE HARRISON HERE TO SEE PT. THEY DISCUSSED HER PAIN MEDS. PT VERBALIZES TO HER THAT 5 MG Q 8 HRS IS NOT CONTROLLONG HER PAIN.
[2016-06-06] MEDS ORDERED: FLORAJEN3 CAPS460 MG PO (12:52)
[2016-06-06] MEDS ORDERED: HYDROCODON-ACE1 EAC6 PO (12:58)
--- NOTE | 2016-06-06 13:20 | NUR ---
PT IS UP WALKING IN [place]ALL[place]. DR ANDERSON HERE TO SEE PT. HE STATES THAT SHE MAY BE DISCHARGED HOME.
--- NOTE | 2016-06-06 13:59 | NUR ---
PT C/O SHARP ABDOMINAL/LEFT RIB PAIN OF "9" ON 0-10 PAIN SCALE. NORCO 7.5 MG GIVEN PO ORDERED. PT INSTRUCTED ON MED. VERBALIZES UNDERSTANDING.
--- NOTE | 2016-06-06 15:24 | NUR ---
PTS DISCHARGE INSTRUCTIONS GIVEN. HANDOUTS , FU APPT TO BE MADE WITH DR ROMERO AND PRESCRIPTION. DISCUSSED INSTRUCTIONS WITH PT.
--- NOTE | 2016-06-06 17:00 | NUR ---
CONTACTED FROM [facility] IN [place], [place]. PHARMACIST WANTED TO VERIFY QUANTITY OF PAIN MEDS DR ANDERSON ORDERED. I TOLD HER 15 AND SHE STATED PT HAS CHANGED PRESCRIPTION TO #75. SHE WILL VOID SCRIPT. I CONTACTED LOPEZ PITT AND DR ANDERSON.
--- NOTE | 2016-06-06 19:09 | NUR ---
[place] ELEMENT SETTER NISREEN TAVAREZ CALLED ME TO VERIFY QUANTITY OF NORCO 7.5/[address] ANDERSON WROTE FOR. I VERIFIED THEY HE WROTE A PRESCRIPTION FOR #15. NO REFILLS. HE STATES THAT HE IS FAXING ME SOMETHING TO MAKE A STATEMENT TO THIS PRESCRIPTION GIVEN.
[2016-06-07 03:10] LABS: OVA + PARASITE EXAM Final report (())
== END 2016-06-06 15:25 | disposition home or self-care (01) | DRG 74 ==
LOC: D.ER 20:41 → D.MS 05-31 01:12 → D.WS 06-03 16:41
PROVIDERS: Family Medicine; Internal Medicine Gastroenterology; ADMIT Emergency Medicine
DX: E11.43 Type 2 diabetes mellitus with diabetic autonomic (poly)neuropathy (principal); E11.65 Type 2 diabetes mellitus with hyperglycemia; E11.40 Type 2 diabetes mellitus with diabetic neuropathy, unspecified; K31.84 Gastroparesis; D64.9 Anemia, unspecified

== ENCOUNTER 2016-06-27 00:48 | Emergency (ER) | payer OTHER ==
[2016-05-31 13:32] VITALS: BMI 23.2
[~2016-06-27 00:48] MED LIST changes: +FLORAJEN3 CAPS460 MG PO; +HYDROCODON-ACE1 EAC6 PO; +KEFLEX500 MG PO
[2016-06-27 01:33] LABS: APPEARANCE CLEAR (CLEAR); BILIRUBIN NEGATIVE (NEGATIVE); COLOR STRAW (YELLOW); GLUCOSE 1000 mg/dL (NEGATIVE); KETONE NEGATIVE (NEGATIVE); LEUKOCYTE ESTERASE NEGATIVE (NEGATIVE); NITRITE NEGATIVE (NEGATIVE); PH 7.5 (5.0-6.0); PROTEIN NEGATIVE (NEGATIVE); UROBILINOGEN NORMAL (NORMAL)
[2016-06-27 02:04] LABS: BASOPHILS 0.3 % (0-2); EOSINOPHILS 0.7 % (0-7); HEMATOCRIT 39.7 % (36.0-48.0); HEMOGLOBIN 13.4 g/dL (12-16); IMMATURE GRANULOCYTES 0.1 % (0-5); LYMPHOCYTES 29.7 % (15-50); MCH 31.3 pg (26.0-34.0); MCHC 33.8 g/dL (31.0-37.0); MCV 92.8 fL (80.0-100.0); MEAN PLATELET VOLUME 10.6 fL (7.4-10.4); MONOCYTES 4.9 % (2-11); NEUTROPHILS 64.3 % (40-80); PLATELET COUNT 221 10x3/uL (130-400); RBC 4.28 10x6/uL (4.00-5.40); WBC 6.7 10x3/uL (4.8-10.8)
[2016-06-27 02:22] LABS: ALKALINE PHOSPHATASE 308 U/L (46-116); ALT (SGPT) 80 U/L (10-68); AMYLASE - SERUM 32 U/L (25-115); BILIRUBIN - TOTAL 0.95 mg/dL (0.2-1.3); CALCIUM 9.8 mg/dL (8.5-10.1); CARBON DIOXIDE 34.1 mmol/L (21.0-32.0); CHLORIDE - SERUM 97 mmol/L (98-107); CREATININE - SERUM 0.9 mg/dL (0.6-1.3); LIPASE 138 U/L (73-393); POTASSIUM - SERUM 4.5 mmol/L (3.5-5.1); PRO BNP 193 pg/mL (0-125); PROTEIN - SERUM 7.8 g/dL (6.4-8.2); SODIUM 137 mmol/L (136-145); TROPONIN-I 0.017 ng/mL (0.000-0.060); UREA NITROGEN 16 mg/dL (7-18); eGFR NON AFRICAN AMERICAN 67 mL/min (90-120)
[2016-06-27 02:27] LABS: CALC OSMOLALITY 304 mosm/kg (275-300); GLUCOSE 636 mg/dL (74-106)
[2016-06-27 02:34] LABS: KETONE - SERUM NEGATIVE (NEGATIVE)
[2016-06-27 02:40] LABS: UDS - AMPHET NEGATIVE QUAL (NEGATIVE); UDS - BARB NEGATIVE QUAL (NEGATIVE); UDS - BENZO NEGATIVE QUAL (NEGATIVE); UDS - COCAINE NEGATIVE QUAL (NEGATIVE); UDS - METH NEGATIVE QUAL (NEGATIVE); UDS - OPIATE NEGATIVE QUAL (NEGATIVE); UDS - PCP NEGATIVE QUAL (NEGATIVE); UDS - THC NEGATIVE QUAL (NEGATIVE)
== END 2016-06-27 04:30 | disposition home or self-care (01) ==
LOC: D.ER 00:48
PROVIDERS: Family Medicine
DX: R11.10 Vomiting, unspecified (principal); E11.65 Type 2 diabetes mellitus with hyperglycemia; Z79.4 Long term (current) use of insulin; I10 Essential (primary) hypertension

== ENCOUNTER 2016-09-15 22:52 | Emergency (ER) | payer SELFPAY ==
[2016-05-31 13:32] VITALS: BMI 23.2
[2016-09-15 23:11] LABS: BASOPHILS 0.3 % (0-2); EOSINOPHILS 0.8 % (0-7); HEMATOCRIT 43.1 % (36.0-48.0); HEMOGLOBIN 14.9 g/dL (12-16); IMMATURE GRANULOCYTES 0.3 % (0-5); MCH 32.2 pg (26.0-34.0); MCHC 34.6 g/dL (31.0-37.0); MCV 93.1 fL (80.0-100.0); MEAN PLATELET VOLUME 10.6 fL (7.4-10.4); MONOCYTES 4.1 % (2-11); NEUTROPHILS 70.5 % (40-80); PLATELET COUNT 233 10x3/uL (130-400); RBC 4.63 10x6/uL (4.00-5.40); RDW 12.9 % (11.5-14.5); WBC 7.9 10x3/uL (4.8-10.8)
[2016-09-15 23:23] LABS: ALBUMIN 4.3 g/dL (3.4-5.0); ALKALINE PHOSPHATASE 203 U/L (46-116); ALT (SGPT) 51 U/L (10-68); AMYLASE - SERUM 37 U/L (25-115); BILIRUBIN - TOTAL 1.12 mg/dL (0.2-1.3); CALC OSMOLALITY 284 mosm/kg (275-300); CALCIUM 9.6 mg/dL (8.5-10.1); CARBON DIOXIDE 28.2 mmol/L (21.0-32.0); CHLORIDE - SERUM 95 mmol/L (98-107); CREATININE - SERUM 0.6 mg/dL (0.6-1.3); GLUCOSE 360 mg/dL (74-106); LIPASE 98 U/L (73-393); PROTEIN - SERUM 8.4 g/dL (6.4-8.2); SODIUM 135 mmol/L (136-145); UREA NITROGEN 13 mg/dL (7-18); eGFR NON AFRICAN AMERICAN > 90 mL/min (90-120)
[2016-09-16 00:39] LABS: APPEARANCE CLEAR (CLEAR); BILIRUBIN NEGATIVE (NEGATIVE); COLOR YELLOW (YELLOW); GLUCOSE 1000 mg/dL (NEGATIVE); KETONE MODERATE mg/dL (NEGATIVE); LEUKOCYTE ESTERASE NEGATIVE (NEGATIVE); NITRITE NEGATIVE (NEGATIVE); PROTEIN NEGATIVE (NEGATIVE); SPECIFIC GRAVITY 1.015 (1.005-1.020); UROBILINOGEN NORMAL (NORMAL)
== END 2016-09-16 02:15 | disposition home or self-care (01) ==
LOC: D.ER 22:52
PROVIDERS: Family Medicine
DX: R11.10 Vomiting, unspecified (principal); E11.43 Type 2 diabetes mellitus with diabetic autonomic (poly)neuropathy; K31.84 Gastroparesis; I10 Essential (primary) hypertension; R19.7 Diarrhea, unspecified; R10.9 Unspecified abdominal pain

== ENCOUNTER 2016-10-24 08:45 | Emergency (ER) | payer SELFPAY ==
[2016-05-31 13:32] VITALS: BMI 23.2
== END 2016-10-24 10:45 | disposition home or self-care (01) ==
LOC: D.ER 08:45
DX: M19.91 Primary osteoarthritis, unspecified site (principal); M25.552 Pain in left hip; M25.551 Pain in right hip; M79.605 Pain in left leg; M79.604 Pain in right leg; I10 Essential (primary) hypertension; E11.9 Type 2 diabetes mellitus without complications

== ENCOUNTER 2017-04-30 21:37 | Inpatient (IN) | payer MEDICAID ==
[~2017-04-30] VITALS: Ht 149.9 cm; Wt 48.6 kg
--- NOTE | ~2017-04-30 | EC ---
PATIENT:ZAINAB REYES DATE OF SERVICE: 04/30/17 SEX: F MEDICAL RECORD: [id number] DATE OF : 55 LOCATION:D.M2 D.211 AGE OF PATIENT: 62 ADMISSION DATE: 04/30/17 REFERRING PHYSICIAN: INTERPRETING PHYSICIAN: HAN DELGADO MD ECHOCARDIOGRAM REPORT ECHO CHARGES 4 ECHO COMPLETE DATE: CLINICAL DIAGNOSIS: MRSA, ASSESS FOR VEGATATION ECHOCARDIOGRAPHIC MEASUREMENTS (adult normal given) AC root (d.<3.7cm) 3.1 cm LV Septum d (<1.2 cm> 1.6 cm Valve Excursion 1.7 cm LV Septum (systole) 1.9 cm Left Atria (s.<4.0cm> 4.0 cm LVPW d(<1.2cm) 1.5 cm RV (d.<2.3cm) 2.5 cm LVPW (sytole) 1.7 cm LV diastole(<5.6CM) 3.7 cm MV E-F(>70mm/sec) cm LV systole 2.7 cm LVOT Diameter 1.7 cm MV exc.(>10mm) 0.80 cm Est.ejection fraction (50-75%) % DOPPLER: LVIT cm/sec A 117 cm/sec E 75.0 cm/sec LA cm/sec RVSP 30 mmHg LVOT 100 cm/sec AOP1/2T m/s Asc. Ao 185 cm/sec RVOT 61 cm/sec RA cm/sec PA 103 cm/sec AV Gradient Peak 13.74mmHg AV Mean 6.58 mmHg AV Area 1.3 cm MV Gradient Peak 5.12 mmHg MV Mean 2.51 mmHg MV Area cm COMMENTS: Supervisor Gelatin Plant: Arthur DUMONT Cell Technician: 1 Dr. Delgado TAPE# PACS Pericardial Effusion N DATE OF SERVICE: 05/03/2017 FINDINGS: 1. Left ventricular chamber size is within normal limits. Left ventricular systolic function is normal. Overall ejection fraction estimated at 60%. 2. Left atrium is upper limits of normal at 4.0 cm. Right atrium and right ventricular chamber sizes are within normal limit. 3. Valvular structures have normal structure and motion. No evidence of vegetative endocarditis. 4. Doppler interrogation reveals mild tricuspid regurgitation. No other ECHOCARDIOGRAM REPORT [id number] ZAINAB REYES valvular insufficiency or stenosis. Pulmonary systolic pressure is normal, estimated at 30 mmHg. 5. No evidence of pericardial effusion or left ventricular thrombus. TRANSINT:[id number] Voice Confirmation ID: [id number] DOCUMENT ID: [id number] 05/08/2017 Edited to correct date of service, dmm. HAN DELGADO MD at 1140 CC: [id number] DICTATION DATE: 05/04/17 1218 TERMINAL OPERATIONS MANAGER: 05/04/17 1743 DIS IN 05/09/17 [address] [place] [address]
--- NOTE | ~2017-04-30 | OP ---
PATIENT NAME: ZAINAB REYES MEDICAL RECORD: [id number] :55 LOCATION:D. D.2114 ADMISSION DATE:04/30/17 SURGEON: MIRNA MOREAU MD DATE OF OPERATION: 05/05/2017 PREOPERATIVE DIAGNOSES: 1. Fever. 2. Bacteremia. 3. Left axillary abscess. POSTOPERATIVE DIAGNOSES: 1. Fever. 2. Bacteremia. 3. Left axillary abscess, please see dimensions below. PROCEDURE: Excisional debridement of left axillary abscess. The dimensions of the debridement, including margins, measured 2.3 x 2.5 cm and included skin and subcutaneous tissue as well as abscess cavity. I then marsupialized the wound. OPERATIVE COURSE: The patient was conveyed to the operating room electively on 05/05/2017. General anesthesia was induced by the anesthesia staff. The left axilla was sterilely prepped and draped. Utilizing the electrocautery, I excised the skin and subcutaneous tissue around the abscess cavity. I then excised a portion of the abscess cavity. Curettage was performed within the abscess cavity. Cultures were obtained. I then marsupialized the wound with a running locking 3-0 Vicryl Rapide suture. I irrigated with hydrogen peroxide. Gauze packing was then applied in a sterile dressing. The patient was then extubated and conveyed to post-anesthesia care unit where she was in stable condition. There were no family members present to talk to out in the waiting area. TRANSINT:[id number] Voice Confirmation ID: [id number] DOCUMENT ID: [id number] MIRNA MOREAU MD at 1042 CC: AMISHA HUANG MD [id number] DICTATION DATE: 05/05/17 1002 DEPUTY DIRECTOR OF NURSING: 05/05/17 1207 DIS IN 05/09/17 [address] [place] [address]
--- NOTE | ~2017-04-30 | HEMODYNAMI ---
PATIENT:ZAINAB REYES MEDICAL RECORD: [id number] : 55 LOCATION:[facility] D.2114 ADMISSION DATE: 04/30/17 Generatedon:05/08/201712:06 Patient name: ZAINAB CALDERON Patient #: [id number] SS N: : 1955 Date of study: 05/08/2017 Page: Of Hemodynamic Procedure Report Patient Data Patient Demographics Procedure consent was obtained First Name: ZAINAB Gender: Female Last Name: KETTY CALDERON : 1955 Patient #: [id number] Age: 62 year(s) Race: Other Additional ID: [id number] Contact details [address]: [address] [place] [address] [address] State: [place] City: [place] Zip code: [address] Past Medical History Allergies Allergen Reaction Date Comments Reported Codeine 05/08/2017 Admission Admission Data Admission Date: 04/30/2017 Admission Time: 23:53 Room #: D.2114 Procedure Procedure Types Cath Procedure Diagnostic Procedure CADEN Procedure Description Procedure Date Procedure Date: 05/08/2017 Procedure Start Time: 10:58 Procedure Staff Name Function Hever Gage MD Performing Physician Leonarda Rubin RT Monitor Brandi Melo RN Nurse Marianela Flores RT Vinyl Hanger Rizwan Coto Paving And Surfacing Labourer Chino Russell MD Additional personnel Procedure Data Procedure Complications No complications Procedure Medications Medication Administration Route Dosage Oxygen NC 2 l/min Hurricaine [place] P.O. 1 Sprays Refer to Anesthesia Notes for Sedation Medications Hemodynamics Rest Heart Rate: 87 (bpm) Snapshots Pre Cath Intra NCS Post Cath Vital Signs Time Heart Resp SPO2 etCO2 NIBP (mmHg) Rhythm Pain Sedation Rate (ipm) (%) (mmHg) Status Level (bpm) 11:14:45 89 16 97 0 125/64(93) NSR 0 (11) 10(A) , No pain 11:19:13 86 14 97 0 121/58(93) NSR 0 (11) 10(A) , No pain 11:23:27 84 15 97 0 108/51(77) NSR 0 (11) 10(A) , No pain 11:27:45 86 31 100 0 106/53(78) NSR 0 (11) 10(A) , No pain 11:31:55 83 16 99 0 112/54(87) NSR 0 (11) 10(A) , No pain 11:36:11 88 17 100 0 114/58(79) NSR 0 (11) 10(A) , No pain 11:40:25 86 14 100 0 117/56(91) NSR 0 (11) 10(A) , No pain 11:44:39 83 15 100 0 115/54(88) NSR 0 (11) 10(A) , No pain 11:48:53 86 17 99 0 111/57(94) NSR 0 (11) 10(A) , No pain 11:53:05 86 17 99 0 129/69(106) NSR 0 (11) 10(A) , No pain 11:58:31 75 17 96 0 91/45(70) NSR 0 (11) 9(A) , No pain 12:04:13 92 15 96 0 84/68(79) NSR 0 (11) 10(A) , No pain Medications Time Medication Route Dose Verified Delivered Reason Notes Effective ness by by 11:19:03 Oxygen NC 2 Hever Buffie used for l/min Too Melo RN procedure MD 11:19:37 Hurricaine P[address]O. 1 Hever Buffie Per [place] Sprays Too Melo RN physician 11:20:11 Refer to Hever Paz Anesthesia Too Melo RN Notes for MD Sedation Medications Procedure Log Time Note 11:00:01 Leonarda Counts RT(R) sent for patient. Start room use. 11:00:02 Time tracking: Regular hours 11:00:06 Plan of Care:Hemodynamics will remain stable., Cardiac rhythm will remain stable., Comfort level will be maintained., Respiratory function will remain adequate., Patient/ family verbilizes understanding of procedure., Procedure tolerated without complication., Recovers from procedure without complications.. 11:11:06 Patient received from PCU to [facility] Alert and oriented. Tansferred to table in Supine position. 11:11:07 Warm blankets applied, and matthew hugger turned on for patient comfort. 11:11:07 Correct patient and procedure confirmed by team. 11:11:09 Signed procedure consent form obtained from patient. 11:11:09 ECG and BP/O2 sat monitors applied to patient. 11:11:10 Full Disclosure recording started 11:13:25 Rhythm: sinus rhythm 11:13:39 Vital chart was started 11:16:02 H&P Date Dictated: 05/03/2017 Within 30 days and on chart.. 11:16:03 Pre-procedure instructions explained to patient. 11:16:03 Pre-op teaching completed and patient verbalized understanding. 11:16:06 Family unavailable. 11:16:08 Patient NPO since Midnight. 11:16:15 Patient allergic to Codeine 11:16:45 Is the patient allergic to Iodine/contrast media? No. 11:16:47 Is patient on blood thinner?No 11:16:49 Patient diabetic? Yes. 11:16:50 If diabetic: On Metformin? No 11:16:54 Previous problem with sedation/anesthesia? No ? 11:16:54 Snore? Yes 11:17:00 Sleep apnea? No 11:17:01 Deviated septum? No 11:17:02 Opens mouth fully? Yes 11:17:02 Sticks out tongue? Yes 11:17:04 Airway obstruction? No ? 11:17:06 Dentures? No ? 11:17:09 Patient pain scale 0/10 ?. 11:17:17 IV patent on arrival in right forearm with 0.9% NaCl at [facility]. 11:17:20 Lab results completed and on chart. 11:17:44 Alarms reviewed by Fredy Patterson 11:19:02 Baseline sample Acquired. 11:19:03 Oxygen 2 l/min NC was administered by Brandi Melo RN; used for procedure; 11:19:37 Hurricaine [place] 1 Sprays P.O. was administered by Brandi Melo RN; Per physician; 11:20:11 Refer to Anesthesia Notes for Sedation Medications was administered by Brandi Melo RN; ; 11:37:27 Rizwan Coto Machine Turner present for CADEN. 11:37:43 Waiting on anesthesia. 11:45:43 Chino Russell MD present and monitoring patient for TIVA. 11:49:34 Final Timeout: patient, procedure, and site verified with staff and physician. All members of the team are in agreement. 11:49:45 Physical assessment completed. ASA score P 2 - A patient with mild systemic disease as per Hever Gage MD. 11:49:49 Sedation plan: TIVA Medication:Propofol 11:52:18 CADEN started. 11:55:18 CADEN completed. 11:55:57 Procedure ended.(Physican Out) 11:56:13 Post procedure rhythm: unchanged. 11:56:15 Post procedure instruction explained to patient.Patient verbalizes understanding. 11:56:16 Patient needs reinforcement of post procedure teaching. 11:56:19 See physician's report for complete and final results. 12:05:05 Report given to Med II. 12:05:11 Patient transfered to Med II with Bed. 12:05:29 Procedure Complication : No complications 12:05:33 Vital chart was stopped 12:05:37 End room use (Document Last) Signature Audit Garvin Stage Time Signature Unsigned Intra-Procedure 05/08/2017 Marianela Flores 12:06:17 PM RT(R) Signatures Monitor : Leonarda Signature : Counts RT Date : Time : [facility] [address] [place] [address]
--- NOTE | ~2017-04-30 | CN ---
PATIENT NAME:ZAINAB REYES MEDICAL RECORD: [id number] : 55 LOCATION:. D.2114 ADMIT DATE: 04/30/17 ACCOUNT: [id number] CONSULTING PHYSICIAN: MIRNA MOREAU MD REFERRING PHYSICIAN: AMISHA SADNERS MD DATE OF CONSULTATION: 05/04/2017 CONSULTATION NOTE ADDENDUM HISTORY: The patient has been febrile. She has been bacteremic. She had 2 positive blood cultures for Staphylococcus aureus. In trying to identify a source of the bacteremia, Dr. Sanders was able to identify a left axillary abscess which has partially drained. Cultures were obtained. Palpation aggravates. Nothing alleviates. She states that she has been sick for about 6 days. This is a consultation note addendum. For the typed portion of consult note, please see the chart. This will include the past medical and surgical history, current medications, allergies, and social history as well as family history. REVIEW OF SYSTEMS: Positive for fever. No chills. No shortness of breath. No chest pain. The review of systems is negative other than as is described above. PHYSICAL EXAMINATION: GENERAL: The patient does appear acutely ill. He does not appear chronically ill. The entire physical examination was performed in the presence of a female nurse. VITAL SIGNS: Reviewed. EARS: External ears appear normal. EYES: Extraocular movements are intact. NECK: Trachea is midline. CHEST: No intercostal retractions. PULMONARY: Nonlabored. No stridor. ABDOMEN: No peritonitis with movement. INTEGUMENT: There is an abscess on the lateral aspect of the axilla. It is about 1.5 cm in greatest dimension. It is draining. BACK: No thoracic kyphosis. LYMPHATIC: No lymphangitic streaking of the exposed extremities. IMPRESSION: Bacteremia, perhaps due to left axillary abscess. PLAN: Plan will be excisional debridement of left axillary abscess in the operating room tomorrow. The risks, possible complications, and alternatives to the procedure were explained to the patient. She elects to proceed. TRANSINT:[id number] Voice Confirmation ID: [id number] DOCUMENT ID: [id number] CONSULT REPORT [id number] ZAINAB REYES ROBERT MD at 1042 CC: [id number] DICTATION DATE: 05/04/17 1241 CONTINUOUS MINER: 05/04/17 192 DIS IN 05/09/17 [facility] [address] [place] [address]
[2017-04-30 22:10] LABS: BASOPHILS 0.1 % (0-2); EOSINOPHILS 0 % (0-7); HEMATOCRIT 42.8 % (36.0-48.0); HEMOGLOBIN 14.4 g/dL (12-16); IMMATURE GRANULOCYTES 0.8 % (0-5); LYMPHOCYTES 4.7 % (15-50); MCH 32.3 pg (26.0-34.0); MCHC 33.6 g/dL (31.0-37.0); MEAN PLATELET VOLUME 9.8 fL (7.4-10.4); MONOCYTES 4.9 % (2-11); NEUTROPHILS 89.5 % (40-80); RBC 4.46 10x6/uL (4.00-5.40); RDW 12.3 % (11.5-14.5); WBC 19.7 10x3/uL (4.8-10.8)
[2017-04-30 22:22] LABS: KETONE - SERUM MODERATE mg/dL (NEGATIVE)
[2017-04-30 22:31] LABS: ALBUMIN 2.9 g/dL (3.4-5.0); ALKALINE PHOSPHATASE 161 U/L (46-116); ALT (SGPT) 19 U/L (10-68); AMYLASE - SERUM 12 U/L (25-115); CALCIUM 9.6 mg/dL (8.5-10.1); CHLORIDE - SERUM 100 mmol/L (98-107); CREATININE - SERUM 1.1 mg/dL (0.6-1.3); POTASSIUM - SERUM 4.2 mmol/L (3.5-5.1); PROTEIN - SERUM 8.2 g/dL (6.4-8.2); SODIUM 137 mmol/L (136-145); UREA NITROGEN 16 mg/dL (7-18); eGFR NON AFRICAN AMERICAN 53 mL/min (90-120)
[2017-04-30 22:35] LABS: PLATELET COUNT 283 10x3/uL (130-400)
[2017-04-30 22:35] LABS: APPEARANCE HAZY (CLEAR); BILIRUBIN NEGATIVE (NEGATIVE); COLOR YELLOW (YELLOW); GLUCOSE 1000 mg/dL (NEGATIVE); KETONE LARGE mg/dL (NEGATIVE); NITRITE POSITIVE (NEGATIVE); PROTEIN TRACE mg/dL (NEGATIVE); UROBILINOGEN NORMAL (NORMAL)
[2017-04-30 22:37] LABS: EPITHELIAL CELLS 0-5 /hpf (0-5); RED CELLS - URINE 0-5 /hpf (0-5)
[2017-04-30 22:38] LABS: BACTERIA MODERATE /hpf (NONE SEEN)
[2017-04-30 22:39] LABS: MUCUS <1+ /lpf (NONE SEEN)
[2017-04-30 22:41] LABS: LIPASE 43 U/L (73-393)
[2017-04-30 22:42] LABS: CALC OSMOLALITY 298 mosm/kg (275-300); GLUCOSE 523 mg/dL (74-106)
[2017-04-30 22:44] LABS: CARBON DIOXIDE 6.4 mmol/L (21.0-32.0)
[2017-05-01] VITALS (8 sets, daily range): BP systolic 141–171; BP diastolic 74–91; BMI 22.0
[2017-05-01 08:31] LABS: ANION GAP 19.8 mmol/L (8-16); CALCIUM 8.7 mg/dL (8.5-10.1); CARBON DIOXIDE 15.9 mmol/L (21.0-32.0); MAGNESIUM - SERUM 1.4 mg/dL (1.8-2.4)
[2017-05-01 08:32] LABS: POTASSIUM - SERUM 2.7 mmol/L (3.5-5.1)
[2017-05-01 12:29] LABS: ANION GAP 16.1 mmol/L (8-16); CALCIUM 9.5 mg/dL (8.5-10.1); CARBON DIOXIDE 16.9 mmol/L (21.0-32.0); CREATININE - SERUM 0.9 mg/dL (0.6-1.3); MAGNESIUM - SERUM 1.5 mg/dL (1.8-2.4)
[2017-05-01 18:42] LABS: CALC OSMOLALITY 281 mosm/kg (275-300); CARBON DIOXIDE 15.1 mmol/L (21.0-32.0); CHLORIDE - SERUM 109 mmol/L (98-107); CREATININE - SERUM 0.8 mg/dL (0.6-1.3); GLUCOSE 141 mg/dL (74-106); MAGNESIUM - SERUM 1.4 mg/dL (1.8-2.4); POTASSIUM - SERUM 3.2 mmol/L (3.5-5.1); SODIUM 140 mmol/L (136-145); UREA NITROGEN 14 mg/dL (7-18); eGFR NON AFRICAN AMERICAN 77 mL/min (90-120)
[2017-05-02] VITALS (24 sets, daily range): BP systolic 132–179; BP diastolic 50–90; Ht 149.9 cm; Wt 48.6 kg
[2017-05-02 04:27] LABS: BASOPHILS 0.1 % (0-2); EOSINOPHILS 0 % (0-7); HEMATOCRIT 35.8 % (36.0-48.0); HEMOGLOBIN 12.6 g/dL (12-16); IMMATURE GRANULOCYTES 0.4 % (0-5); LYMPHOCYTES 4.8 % (15-50); MCH 31.5 pg (26.0-34.0); MCHC 35.2 g/dL (31.0-37.0); MCV 89.5 fL (80.0-100.0); MEAN PLATELET VOLUME 9.4 fL (7.4-10.4); MONOCYTES 3.8 % (2-11); NEUTROPHILS 90.9 % (40-80); PLATELET COUNT 242 10x3/uL (130-400); RDW 12.2 % (11.5-14.5); WBC 18.7 10x3/uL (4.8-10.8)
[2017-05-02 04:40] LABS: ALKALINE PHOSPHATASE 168 U/L (46-116); ALT (SGPT) 16 U/L (10-68); CALC OSMOLALITY 275 mosm/kg (275-300); CALCIUM 8.7 mg/dL (8.5-10.1); CARBON DIOXIDE 16.2 mmol/L (21.0-32.0); CHLORIDE - SERUM 107 mmol/L (98-107); CHOL - HDL RATIO 2.8 ratio (2.3-4.1); CHOLESTEROL, TOTAL 101 mg/dL (0-200); CREATININE - SERUM 0.6 mg/dL (0.6-1.3); GLUCOSE 125 mg/dL (74-106); HDL CHOLESTEROL 36 mg/dL (32-96); LDL CHOLESTEROL 55 mg/dL (0-100); LDL-HDL RATIO 1.5 ratio (1.5-3.5); MAGNESIUM - SERUM 1.9 mg/dL (1.8-2.4); POTASSIUM - SERUM 3.2 mmol/L (3.5-5.1); PROTEIN - SERUM 6.3 g/dL (6.4-8.2); SODIUM 138 mmol/L (136-145); TRIGLYCERIDE 54 mg/dL (30-200); UREA NITROGEN 11 mg/dL (7-18); eGFR NON AFRICAN AMERICAN > 90 mL/min (90-120)
[2017-05-02 16:43] LABS: KETONE - SERUM MODERATE mg/dL (NEGATIVE)
[2017-05-02 17:04] LABS: CALCIUM 8.7 mg/dL (8.5-10.1); CARBON DIOXIDE 18.3 mmol/L (21.0-32.0); CHLORIDE - SERUM 107 mmol/L (98-107); CREATININE - SERUM 0.6 mg/dL (0.6-1.3); GLUCOSE 100 mg/dL (74-106); SODIUM 138 mmol/L (136-145); eGFR NON AFRICAN AMERICAN > 90 mL/min (90-120)
[2017-05-02 17:07] LABS: CALC OSMOLALITY 273 mosm/kg (275-300); POTASSIUM - SERUM 2.7 mmol/L (3.5-5.1); UREA NITROGEN 8 mg/dL (7-18)
[2017-05-02 20:12] LABS: KETONE - SERUM SMALL mg/dL (NEGATIVE)
[2017-05-02 20:14] LABS: CALC OSMOLALITY 275 mosm/kg (275-300); CALCIUM 8.5 mg/dL (8.5-10.1); CARBON DIOXIDE 21.2 mmol/L (21.0-32.0); CHLORIDE - SERUM 103 mmol/L (98-107); CREATININE - SERUM 0.5 mg/dL (0.6-1.3); GLUCOSE 126 mg/dL (74-106); MAGNESIUM - SERUM 1.7 mg/dL (1.8-2.4); SODIUM 138 mmol/L (136-145); UREA NITROGEN 7 mg/dL (7-18); eGFR NON AFRICAN AMERICAN > 90 mL/min (90-120)
[2017-05-02 20:23] LABS: POTASSIUM - SERUM 2.8 mmol/L (3.5-5.1)
[2017-05-03] VITALS (24 sets, daily range): BP systolic 117–166; BP diastolic 57–94
[2017-05-03 05:47] LABS: BASOPHILS 0 % (0-2); EOSINOPHILS 0.1 % (0-7); HEMATOCRIT 35.5 % (36.0-48.0); HEMOGLOBIN 12.7 g/dL (12-16); IMMATURE GRANULOCYTES 0.3 % (0-5); MCH 31.8 pg (26.0-34.0); MCHC 35.8 g/dL (31.0-37.0); MCV 88.8 fL (80.0-100.0); MEAN PLATELET VOLUME 9.2 fL (7.4-10.4); MONOCYTES 5.1 % (2-11); NEUTROPHILS 83.5 % (40-80); PLATELET COUNT 213 10x3/uL (130-400); RDW 12.3 % (11.5-14.5)
[2017-05-03 05:48] LABS: WBC 11.4 10x3/uL (4.8-10.8)
[2017-05-03 06:14] LABS: ALKALINE PHOSPHATASE 158 U/L (46-116); ALT (SGPT) 19 U/L (10-68); CALC OSMOLALITY 273 mosm/kg (275-300); CALCIUM 8.4 mg/dL (8.5-10.1); CARBON DIOXIDE 26.2 mmol/L (21.0-32.0); CHLORIDE - SERUM 102 mmol/L (98-107); CREATININE - SERUM 0.5 mg/dL (0.6-1.3); GLUCOSE 101 mg/dL (74-106); PROTEIN - SERUM 6.2 g/dL (6.4-8.2); SODIUM 138 mmol/L (136-145); UREA NITROGEN 6 mg/dL (7-18); eGFR NON AFRICAN AMERICAN > 90 mL/min (90-120)
[2017-05-03 06:15] LABS: POTASSIUM - SERUM 2.7 mmol/L (3.5-5.1)
[2017-05-03 08:37] LABS: KETONE - SERUM NEGATIVE (NEGATIVE)
[2017-05-03 08:41] LABS: CALC OSMOLALITY 270 mosm/kg (275-300); CARBON DIOXIDE 27.4 mmol/L (21.0-32.0); CHLORIDE - SERUM 101 mmol/L (98-107); CREATININE - SERUM 0.4 mg/dL (0.6-1.3); GLUCOSE 102 mg/dL (74-106); MAGNESIUM - SERUM 1.4 mg/dL (1.8-2.4); SODIUM 137 mmol/L (136-145); UREA NITROGEN 5 mg/dL (7-18); eGFR NON AFRICAN AMERICAN > 90 mL/min (90-120)
[2017-05-03 08:44] LABS: POTASSIUM - SERUM 2.7 mmol/L (3.5-5.1)
[2017-05-03 17:13] LABS: CHLORIDE - SERUM 101 mmol/L (98-107); MAGNESIUM - SERUM 1.5 mg/dL (1.8-2.4); SODIUM 135 mmol/L (136-145)
[2017-05-03 17:17] LABS: POTASSIUM - SERUM 4.1 mmol/L (3.5-5.1)
[2017-05-03 17:43] LABS: CALC OSMOLALITY 269 mosm/kg (275-300); CALCIUM 8.5 mg/dL (8.5-10.1); CREATININE - SERUM 0.5 mg/dL (0.6-1.3); GLUCOSE 145 mg/dL (74-106); UREA NITROGEN 5 mg/dL (7-18); eGFR NON AFRICAN AMERICAN > 90 mL/min (90-120)
[2017-05-04] VITALS (11 sets, daily range): BP systolic 108–149; BP diastolic 61–90
[2017-05-04 03:07] LABS: BASOPHILS 0 % (0-2); EOSINOPHILS 0.7 % (0-7); HEMATOCRIT 34.1 % (36.0-48.0); HEMOGLOBIN 11.8 g/dL (12-16); IMMATURE GRANULOCYTES 0.1 % (0-5); MCH 31.1 pg (26.0-34.0); MCHC 34.6 g/dL (31.0-37.0); MEAN PLATELET VOLUME 8.9 fL (7.4-10.4); MONOCYTES 6.8 % (2-11); NEUTROPHILS 70.4 % (40-80); PLATELET COUNT 182 10x3/uL (130-400); RBC 3.79 10x6/uL (4.00-5.40); RDW 12.4 % (11.5-14.5)
[2017-05-04 03:13] LABS: WBC 7.1 10x3/uL (4.8-10.8)
[2017-05-04 03:24] LABS: ALBUMIN 1.8 g/dL (3.4-5.0); ALKALINE PHOSPHATASE 143 U/L (46-116); CALC OSMOLALITY 273 mosm/kg (275-300); CALCIUM 7.9 mg/dL (8.5-10.1); CARBON DIOXIDE 29.4 mmol/L (21.0-32.0); CHLORIDE - SERUM 102 mmol/L (98-107); CREATININE - SERUM 0.5 mg/dL (0.6-1.3); GLUCOSE 159 mg/dL (74-106); PROTEIN - SERUM 5.4 g/dL (6.4-8.2); SODIUM 137 mmol/L (136-145); UREA NITROGEN 4 mg/dL (7-18); eGFR NON AFRICAN AMERICAN > 90 mL/min (90-120)
[2017-05-04 03:26] LABS: ALT (SGPT) 24 U/L (10-68); POTASSIUM - SERUM 3.3 mmol/L (3.5-5.1)
[2017-05-05] VITALS: BP 121/61
[2017-05-05 02:27] VITALS: BP 121/61
[2017-05-05 05:01] LABS: BASOPHILS 0.1 % (0-2); EOSINOPHILS 1.3 % (0-7); HEMATOCRIT 34.3 % (36.0-48.0); HEMOGLOBIN 11.7 g/dL (12-16); IMMATURE GRANULOCYTES 0.2 % (0-5); LYMPHOCYTES 23.2 % (15-50); MCHC 34.1 g/dL (31.0-37.0); MONOCYTES 11.4 % (2-11); NEUTROPHILS 63.8 % (40-80); PLATELET COUNT 199 10x3/uL (130-400); RBC 3.77 10x6/uL (4.00-5.40); RDW 12.5 % (11.5-14.5); WBC 8.3 10x3/uL (4.8-10.8)
[2017-05-05 05:19] LABS: ALKALINE PHOSPHATASE 138 U/L (46-116); ALT (SGPT) 25 U/L (10-68); CALCIUM 8.4 mg/dL (8.5-10.1); CARBON DIOXIDE 30.5 mmol/L (21.0-32.0); CHLORIDE - SERUM 100 mmol/L (98-107); CREATININE - SERUM 0.5 mg/dL (0.6-1.3); GLUCOSE 147 mg/dL (74-106); POTASSIUM - SERUM 3.9 mmol/L (3.5-5.1); PROTEIN - SERUM 5.9 g/dL (6.4-8.2); SODIUM 137 mmol/L (136-145); eGFR NON AFRICAN AMERICAN > 90 mL/min (90-120)
[2017-05-05 05:20] LABS: CALC OSMOLALITY 275 mosm/kg (275-300); UREA NITROGEN 9 mg/dL (7-18)
[2017-05-05 09:19] VITALS: BP 128/78
[2017-05-05 11:09] VITALS: BP 124/83
[2017-05-05 15:32] VITALS: BP 148/71
[2017-05-05 19:00] VITALS: BP 162/72
[2017-05-06 04:00] VITALS: BP 143/87
[2017-05-06 06:03] LABS: BASOPHILS 0.1 % (0-2); EOSINOPHILS 1.8 % (0-7); HEMATOCRIT 36.6 % (36.0-48.0); HEMOGLOBIN 12.4 g/dL (12-16); IMMATURE GRANULOCYTES 0.4 % (0-5); MCH 31.3 pg (26.0-34.0); MCHC 33.9 g/dL (31.0-37.0); MCV 92.4 fL (80.0-100.0); MEAN PLATELET VOLUME 9.1 fL (7.4-10.4); MONOCYTES 6.8 % (2-11); NEUTROPHILS 61.9 % (40-80); RBC 3.96 10x6/uL (4.00-5.40); RDW 12.4 % (11.5-14.5); WBC 7.4 10x3/uL (4.8-10.8)
[2017-05-06 06:14] LABS: PLATELET COUNT 266 10x3/uL (130-400)
[2017-05-06 06:32] LABS: ALBUMIN 2.1 g/dL (3.4-5.0); ALKALINE PHOSPHATASE 165 U/L (46-116); ALT (SGPT) 26 U/L (10-68); CALCIUM 8.4 mg/dL (8.5-10.1); CARBON DIOXIDE 32.2 mmol/L (21.0-32.0); CHLORIDE - SERUM 100 mmol/L (98-107); CREATININE - SERUM 0.6 mg/dL (0.6-1.3); PROTEIN - SERUM 6.3 g/dL (6.4-8.2); SODIUM 139 mmol/L (136-145); UREA NITROGEN 7 mg/dL (7-18); eGFR NON AFRICAN AMERICAN > 90 mL/min (90-120)
[2017-05-06 06:34] LABS: CALC OSMOLALITY 274 mosm/kg (275-300); GLUCOSE 88 mg/dL (74-106); POTASSIUM - SERUM 3.3 mmol/L (3.5-5.1)
[2017-05-06 09:21] VITALS: BP 140/68
[2017-05-06 13:01] VITALS: BP 176/67
[2017-05-06 17:36] VITALS: BP 147/78
[2017-05-06 19:00] VITALS: BP 136/73
[2017-05-07] VITALS: BP 147/72
[2017-05-07 04:00] VITALS: BP 140/71
[2017-05-07 08:41] VITALS: BP 157/64
[2017-05-07 08:47] LABS: BASOPHILS 0.2 % (0-2); EOSINOPHILS 1.4 % (0-7); HEMATOCRIT 37.2 % (36.0-48.0); HEMOGLOBIN 12.4 g/dL (12-16); IMMATURE GRANULOCYTES 0.4 % (0-5); LYMPHOCYTES 21.9 % (15-50); MCH 31.2 pg (26.0-34.0); MCHC 33.3 g/dL (31.0-37.0); MCV 93.7 fL (80.0-100.0); MEAN PLATELET VOLUME 9.1 fL (7.4-10.4); MONOCYTES 9.6 % (2-11); NEUTROPHILS 66.5 % (40-80); RBC 3.97 10x6/uL (4.00-5.40); RDW 12.4 % (11.5-14.5); WBC 9.1 10x3/uL (4.8-10.8)
[2017-05-07 08:48] LABS: PLATELET COUNT 354 10x3/uL (130-400)
[2017-05-07 08:56] LABS: CALCIUM 9.2 mg/dL (8.5-10.1); CARBON DIOXIDE 32.8 mmol/L (21.0-32.0); CHLORIDE - SERUM 96 mmol/L (98-107); CREATININE - SERUM 0.6 mg/dL (0.6-1.3); POTASSIUM - SERUM 4.3 mmol/L (3.5-5.1); SODIUM 135 mmol/L (136-145); eGFR NON AFRICAN AMERICAN > 90 mL/min (90-120)
[2017-05-07 08:58] LABS: CALC OSMOLALITY 274 mosm/kg (275-300); GLUCOSE 196 mg/dL (74-106); UREA NITROGEN 12 mg/dL (7-18)
[2017-05-07 12:01] VITALS: BP 160/70
[2017-05-07 16:09] VITALS: BP 155/74
[2017-05-07 19:00] VITALS: BP 113/52
[2017-05-08 04:00] VITALS: BP 126/62
[2017-05-08 08:21] VITALS: BP 126/68
[2017-05-08 15:57] LABS: BASOPHILS 0.1 % (0-2); EOSINOPHILS 0.7 % (0-7); HEMOGLOBIN 10.9 g/dL (12-16); IMMATURE GRANULOCYTES 0.2 % (0-5); LYMPHOCYTES 23.1 % (15-50); MCH 31.3 pg (26.0-34.0); MCV 94.8 fL (80.0-100.0); MEAN PLATELET VOLUME 9.2 fL (7.4-10.4); MONOCYTES 8.3 % (2-11); NEUTROPHILS 67.6 % (40-80); PLATELET COUNT 340 10x3/uL (130-400); RBC 3.48 10x6/uL (4.00-5.40); RDW 12.5 % (11.5-14.5); WBC 9.1 10x3/uL (4.8-10.8)
[2017-05-08 16:11] LABS: CALC OSMOLALITY 282 mosm/kg (275-300); CALCIUM 8.3 mg/dL (8.5-10.1); CARBON DIOXIDE 31.1 mmol/L (21.0-32.0); CHLORIDE - SERUM 99 mmol/L (98-107); CREATININE - SERUM 0.6 mg/dL (0.6-1.3); POTASSIUM - SERUM 3.9 mmol/L (3.5-5.1); SODIUM 135 mmol/L (136-145); UREA NITROGEN 13 mg/dL (7-18); eGFR NON AFRICAN AMERICAN > 90 mL/min (90-120)
[2017-05-08 16:12] LABS: GLUCOSE 334 mg/dL (74-106)
[2017-05-08 20:00] VITALS: BP 125/56
[2017-05-09] VITALS: BP 162/68
[2017-05-09 04:00] VITALS: BP 163/66
[2017-05-09 08:18] LABS: BASOPHILS 0.1 % (0-2); EOSINOPHILS 1.6 % (0-7); HEMATOCRIT 32.2 % (36.0-48.0); HEMOGLOBIN 10.7 g/dL (12-16); IMMATURE GRANULOCYTES 0.1 % (0-5); LYMPHOCYTES 22.5 % (15-50); MCH 31.4 pg (26.0-34.0); MCHC 33.2 g/dL (31.0-37.0); MCV 94.4 fL (80.0-100.0); MONOCYTES 7.4 % (2-11); NEUTROPHILS 68.3 % (40-80); PLATELET COUNT 399 10x3/uL (130-400); RBC 3.41 10x6/uL (4.00-5.40); RDW 12.6 % (11.5-14.5); WBC 7.3 10x3/uL (4.8-10.8)
[2017-05-09 08:45] LABS: CALC OSMOLALITY 277 mosm/kg (275-300); CALCIUM 8.4 mg/dL (8.5-10.1); CARBON DIOXIDE 30.3 mmol/L (21.0-32.0); CHLORIDE - SERUM 100 mmol/L (98-107); CREATININE - SERUM 0.6 mg/dL (0.6-1.3); POTASSIUM - SERUM 3.9 mmol/L (3.5-5.1); SODIUM 135 mmol/L (136-145); UREA NITROGEN 11 mg/dL (7-18); eGFR NON AFRICAN AMERICAN > 90 mL/min (90-120)
[2017-05-09 08:49] LABS: GLUCOSE 253 mg/dL (74-106)
[2017-05-09 09:19] VITALS: BP 136/53
[2017-05-09 13:05] VITALS: BP 156/66
== END 2017-05-09 19:19 | disposition home or self-care (01) | DRG 853 ==
LOC: D.ER 21:37 → D.EDHOLD 23:53 → D.M2 23:53 → D.ICU 23:53 → D.M2 05-04 17:26 → D.SDCHOLD 05-09 16:42 → D.M2 05-09 16:47
PROVIDERS: Family Medicine; Family Medicine Adult Medicine; Internal Medicine Nephrology; Surgery
PROC: 0JBF0ZZ Excision of Left Upper Arm Subcutaneous Tissue and Fascia, Open Approach (ICD-10-PCS; principal; 2017-05-05 09:20)
PROC: 05HB33Z Insertion of Infusion Device into Right Basilic Vein, Percutaneous Approach (ICD-10-PCS; 2017-05-09)
PROC: B54MZZA Ultrasonography of Right Upper Extremity Veins, Guidance (ICD-10-PCS; 2017-05-09)
DX: A41.01 Sepsis due to Methicillin susceptible Staphylococcus aureus (principal); E11.10 Type 2 diabetes mellitus with ketoacidosis without coma; G93.41 Metabolic encephalopathy; N39.0 Urinary tract infection, site not specified; L02.412 Cutaneous abscess of left axilla; E87.1 Hypo-osmolality and hyponatremia; E11.42 Type 2 diabetes mellitus with diabetic polyneuropathy; I10 Essential (primary) hypertension; E78.5 Hyperlipidemia, unspecified; E83.42 Hypomagnesemia; M25.561 Pain in right knee; E87.6 Hypokalemia; B95.61 Methicillin susceptible Staphylococcus aureus infection as the cause of diseases classified elsewhere

== ENCOUNTER → 2017-05-15 18:01 | Outpatient (CLI) | payer MEDICAID ==
[2017-05-02 09:35] VITALS: BMI 23.4
[2017-05-15 18:06] LABS: BASOPHILS 0.4 % (0-2); HEMATOCRIT 36.3 % (36.0-48.0); HEMOGLOBIN 11.8 g/dL (12-16); IMMATURE GRANULOCYTES 0.3 % (0-5); LYMPHOCYTES 35.6 % (15-50); MCH 31.7 pg (26.0-34.0); MCHC 32.5 g/dL (31.0-37.0); MCV 97.6 fL (80.0-100.0); MEAN PLATELET VOLUME 9.8 fL (7.4-10.4); MONOCYTES 6.4 % (2-11); NEUTROPHILS 53.3 % (40-80); PLATELET COUNT 425 10x3/uL (130-400); RBC 3.72 10x6/uL (4.00-5.40); RDW 12.8 % (11.5-14.5); WBC 6.7 10x3/uL (4.8-10.8)
[2017-05-15 18:26] LABS: C-REACTIVE PROTEIN 0.7 mg/dL (0.0-0.9); CREATININE - SERUM 0.8 mg/dL (0.6-1.3)
[2017-05-15 20:14] LABS: ERYTHROCYTE SEDIMENTATION RATE 75 mm/hr (0-30)
== END | disposition home or self-care (01) ==
LOC: D.LABREF 18:01
PROVIDERS: Student in an Organized Health Care Education/Training Program
DX: L02.412 Cutaneous abscess of left axilla (principal)

== ENCOUNTER → 2017-05-23 13:55 | Outpatient (CLI) | payer MEDICAID ==
[2017-05-02 09:35] VITALS: BMI 23.4
[2017-05-23 14:15] LABS: BASOPHILS 0.2 % (0-2); HEMOGLOBIN 12.1 g/dL (12-16); IMMATURE GRANULOCYTES 0.1 % (0-5); MCH 31.4 pg (26.0-34.0); MCHC 33.6 g/dL (31.0-37.0); MCV 93.5 fL (80.0-100.0); MEAN PLATELET VOLUME 10.2 fL (7.4-10.4); NEUTROPHILS 58.7 % (40-80); PLATELET COUNT 270 10x3/uL (130-400); RBC 3.85 10x6/uL (4.00-5.40); RDW 12.4 % (11.5-14.5); WBC 8.4 10x3/uL (4.8-10.8)
[2017-05-23 14:44] LABS: C-REACTIVE PROTEIN 1.6 mg/dL (0.0-0.9); CREATININE - SERUM 0.7 mg/dL (0.6-1.3)
[2017-05-23 15:44] LABS: ERYTHROCYTE SEDIMENTATION RATE 25 mm/hr (0-30)
== END | disposition home or self-care (01) ==
LOC: D.LABREF 13:55
PROVIDERS: Student in an Organized Health Care Education/Training Program
DX: L02.412 Cutaneous abscess of left axilla (principal)

== ENCOUNTER → 2017-05-29 12:28 | Outpatient (CLI) | payer MEDICAID ==
[2017-05-02 09:35] VITALS: BMI 23.4
[2017-05-29 13:00] LABS: HEMATOCRIT 38.4 % (36.0-48.0); HEMOGLOBIN 13.2 g/dL (12-16); LYMPHOCYTES 30.2 % (15-50); MCH 30.9 pg (26.0-34.0); MCHC 34.4 g/dL (31.0-37.0); MCV 89.9 fL (80.0-100.0); MEAN PLATELET VOLUME 10.3 fL (7.4-10.4); NEUTROPHILS 63.8 % (40-80); RBC 4.27 10x6/uL (4.00-5.40); RDW 12.3 % (11.5-14.5); WBC 7.1 10x3/uL (4.8-10.8)
[2017-05-29 13:08] LABS: CREATININE - SERUM 0.9 mg/dL (0.6-1.3); UREA NITROGEN 17 mg/dL (7-18)
[2017-05-29 13:09] LABS: C-REACTIVE PROTEIN < 0.2 mg/dL (0.0-0.9)
[2017-05-29 13:24] LABS: PLATELET COUNT 215 10x3/uL (130-400)
[2017-05-29 14:39] LABS: ERYTHROCYTE SEDIMENTATION RATE 29 mm/hr (0-30)
== END | disposition home or self-care (01) ==
LOC: D.LABREF 12:28
PROVIDERS: Student in an Organized Health Care Education/Training Program
DX: L02.91 Cutaneous abscess, unspecified (principal)

== ENCOUNTER 2017-06-04 11:02 | Outpatient (CLI) | payer MEDICAID ==
[2017-05-02 09:35] VITALS: BMI 23.4
== END 2017-06-04 11:47 | disposition home or self-care (01) ==
LOC: D.SP 11:02 → D.OPS 11:30 → D.SP 11:30
DX: L02.91 Cutaneous abscess, unspecified (principal); Z79.2 Long term (current) use of antibiotics

== ENCOUNTER 2017-07-31 16:13 | Emergency (ER) | payer MEDICAID ==
[~2017-07-31] VITALS: Ht 149.9 cm; Wt 48.2 kg
[2017-07-31 16:16] VITALS: Ht 149.9 cm; Wt 48.2 kg
[2017-07-31] MEDS ORDERED: TRAMADOL HCL E100 M1 PO (17:51)
[2017-07-31 18:00] VITALS: BP 137/76
== END 2017-07-31 18:38 | disposition home or self-care (01) ==
LOC: D.ER 16:13
DX: M54.16 Radiculopathy, lumbar region (principal); E11.9 Type 2 diabetes mellitus without complications; I10 Essential (primary) hypertension; K21.9 Gastro-esophageal reflux disease without esophagitis

== ENCOUNTER 2017-08-09 09:39 | Emergency (ER) | payer MEDICAID ==
[~2017-08-09] VITALS: Ht 149.9 cm; Wt 48.2 kg
[~2017-08-09 09:39] MED LIST changes: +TRAMADOL HCL E100 M1 PO
[2017-08-09 09:41] VITALS: Ht 149.9 cm; Wt 48.2 kg
[2017-08-09 10:07] LABS: APPEARANCE HAZY (CLEAR); BILIRUBIN NEGATIVE (NEGATIVE); COLOR STRAW (YELLOW); GLUCOSE 1000 mg/dL (NEGATIVE); KETONE NEGATIVE (NEGATIVE); NITRITE NEGATIVE (NEGATIVE); PH 6.5 (5.0-6.0); PROTEIN NEGATIVE (NEGATIVE); SPECIFIC GRAVITY 1.005 (1.005-1.020); UROBILINOGEN NORMAL (NORMAL)
[2017-08-09 10:11] LABS: BACTERIA FEW /hpf (NONE SEEN); EPITHELIAL CELLS OCC /hpf (0-5); RED CELLS - URINE OCC /hpf (0-5)
[2017-08-09 10:12] LABS: YEAST >1+ /hpf (NONE SEEN)
[2017-08-09 10:12] LABS: BASOPHILS 0.2 % (0-2); EOSINOPHILS 0.6 % (0-7); HEMOGLOBIN 12.9 g/dL (12-16); IMMATURE GRANULOCYTES 0.2 % (0-5); LYMPHOCYTES 25.1 % (15-50); MCH 30.9 pg (26.0-34.0); MCHC 33.9 g/dL (31.0-37.0); MCV 90.9 fL (80.0-100.0); MEAN PLATELET VOLUME 9.9 fL (7.4-10.4); MONOCYTES 4.4 % (2-11); NEUTROPHILS 69.5 % (40-80); PLATELET COUNT 225 10x3/uL (130-400); RBC 4.18 10x6/uL (4.00-5.40); RDW 12.7 % (11.5-14.5); WBC 8.3 10x3/uL (4.8-10.8)
[2017-08-09 10:26] LABS: ALBUMIN 3.6 g/dL (3.4-5.0); ANION GAP 12.9 mmol/L (8-16); BILIRUBIN - TOTAL 0.34 mg/dL (0.2-1.3); CALCIUM 9.3 mg/dL (8.5-10.1); CARBON DIOXIDE 29.5 mmol/L (21.0-32.0); POTASSIUM - SERUM 4.4 mmol/L (3.5-5.1); PROTEIN - SERUM 7.9 g/dL (6.4-8.2)
[2017-08-09] MEDS ORDERED: HYDROCODONE-APA1 TAB PO (13:21)
[2017-08-09] MEDS ORDERED: ZOFRAN ODT4 MG/UDTAB PO (13:21)
[2017-08-09] MEDS ORDERED: ULTRAM50 MG PO (13:27)
[2017-08-09 13:41] VITALS: BP 146/76
== END 2017-08-09 13:43 | disposition home or self-care (01) ==
LOC: D.ER 09:39
PROVIDERS: Emergency Medicine
DX: R10.9 Unspecified abdominal pain (principal); R11.2 Nausea with vomiting, unspecified; E11.8 Type 2 diabetes mellitus with unspecified complications

== ENCOUNTER 2018-02-07 22:43 | Inpatient (IN) | payer MEDICAID ==
[~2018-02-07] VITALS: Ht 149.9 cm; Wt 63.5 kg
[~2018-02-07 22:43] MED LIST changes: +HYDROCODONE-APA1 TAB PO; +ULTRAM50 MG PO; +ZOFRAN ODT4 MG/UDTAB PO
[2018-02-07] MEDS ORDERED: SOLIQUA 100 UNIT3 ML SQ (22:57)
[2018-02-07 23:22] LABS: BASOPHILS 0.1 % (0-2); EOSINOPHILS 0.3 % (0-7); IMMATURE GRANULOCYTES 0.4 % (0-5); LYMPHOCYTES 13.2 % (15-50); MCH 31.1 pg (26.0-34.0); MCHC 32.2 g/dL (31.0-37.0); MCV 96.3 fL (80.0-100.0); MONOCYTES 0.8 % (2-11); NEUTROPHILS 85.2 % (40-80); RBC 3.83 10x6/uL (4.00-5.40); WBC 13.8 10x3/uL (4.8-10.8)
[2018-02-07 23:26] LABS: HEMATOCRIT 37.1 % (36.0-48.0); HEMOGLOBIN 12.3 g/dL (12-16); PLATELET COUNT 220 10x3/uL (130-400)
[2018-02-07 23:35] LABS: ALBUMIN 3.5 g/dL (3.4-5.0); ALKALINE PHOSPHATASE 178 U/L (46-116); ALT (SGPT) 54 U/L (10-68); BILIRUBIN - TOTAL 0.74 mg/dL (0.2-1.3); CALC OSMOLALITY 288 mosm/kg (275-300); CALCIUM 9.6 mg/dL (8.5-10.1); CHLORIDE - SERUM 103 mmol/L (98-107); CREATININE - SERUM 1.3 mg/dL (0.6-1.3); POTASSIUM - SERUM 4.1 mmol/L (3.5-5.1); PROTEIN - SERUM 7.6 g/dL (6.4-8.2); SODIUM 140 mmol/L (136-145); UREA NITROGEN 45 mg/dL (7-18); eGFR NON AFRICAN AMERICAN 44 mL/min (90-120)
[2018-02-07 23:36] LABS: GLUCOSE 67 mg/dL (74-106)
[2018-02-07 23:39] LABS: LIPASE 112 U/L (73-393)
[2018-02-07 23:44] LABS: AMYLASE - SERUM 499 U/L (25-115); TROPONIN-I < 0.017 ng/mL (0.000-0.060)
[2018-02-08] VITALS (7 sets, daily range): BP systolic 71–146; BP diastolic 41–82; Ht 149.9 cm; Wt 63.5 kg
--- NOTE | 2018-02-08 00:19 | NUR ---
PT CONTINUES TO C/O PAIN. PT REPOSITIONED IN BED. FAMILY AT BEDSIDE.
--- NOTE | 2018-02-08 00:45 | NUR ---
PT LINENS CHANGED, NEW BRIEF PLACED ON PT DUE TO BOWEL MOVEMENT. FAMILY AT BEDSIDE.
--- NOTE | 2018-02-08 01:24 | NUR ---
STOOL SAMPLE COLLECTED. IN AND OUT CATH PER STERILE TECHNIQUE WITH 15ML RESULTED. SAMPLE TO LAB.
[2018-02-08 01:27] LABS: APPEARANCE CLOUDY (CLEAR); BILIRUBIN NEGATIVE (NEGATIVE); COLOR YELLOW (YELLOW); GLUCOSE NEGATIVE (NEGATIVE); KETONE NEGATIVE (NEGATIVE); NITRITE NEGATIVE (NEGATIVE); PROTEIN 1+ mg/dL (NEGATIVE); SPECIFIC GRAVITY 1.015 (1.005-1.020); UROBILINOGEN NORMAL (NORMAL)
[2018-02-08 01:36] LABS: BACTERIA MANY /hpf (NONE SEEN); CALCIUM OXALATE CRYSTALS OCC /hpf (NONE SEEN); EPITHELIAL CELLS 0-5 /hpf (0-5); HYALINE CAST RARE /lpf (NONE SEEN); MUCUS <1+ /lpf (NONE SEEN); RED CELLS - URINE 0-5 /hpf (0-5); WHITE CELLS - URINE >50 /hpf (0-5)
--- NOTE | 2018-02-08 03:07 | NUR ---
RECEIVED FROM ER VIA STRETCHER. C/O NAUSEA AND ABD PAIN LEVEL 10 ON NUMBER SCALE. ADMIN DEMEROL 25MG IV AND ZOFRAN 4MG IV. ALERT/ORIENTED X3. IV IN RT WRIST WITH FLAGYL INFUSING STARTED IN ER. ORIENTED TO CALL LIGHT AND ROOM. FAMILY MEMBERS PRESENT IN ROOM.
--- NOTE | 2018-02-08 03:41 | NUR ---
ADMIN LEVAQUIN 500MG IV PULLED BY HOUSE SUPVR "ZONDRA" A SUBSTITUTE FORMULARY FOR CIPRO.
--- NOTE | 2018-02-08 06:28 | NUR ---
RESTING QUIETLY WITH EYES CLOSED. RR EVEN U/L. NO SIGNS OR SYMPTOMS OF PAIN OR DISCOMFORT. BED IS LOW WITH CALL LIGHT IN REACH.
--- NOTE | 2018-02-08 08:00 | NUR ---
A/A/OX4. STATES PAIN MED GIVEN AT 0730 HAS NOT HELPED ANY WITH THE PAIN. HAS SOME NAUSEA BUT NO VOMITING. ABD DISTENDED, FIRM AND TENDER TO PALPATION. IV PATENT AND INFUSING WELL TO RIGHT HAND. NO TENDERNESS OR REDNESS AT SITE. BED IN LOW POSITION AND CALL LIGHT IN REACH. ASSESSMENT COMPLETED.
--- NOTE | 2018-02-08 11:18 | NUR ---
NOTIFIED BY [employer] SUPERVISOR OF BP READING OF 71/53. WAS CHECKED A SECOND TIME AND VERIFIED. NOTIFIED DR. GLADYS ORTEGA AND ORDER RECEIVED FOR 500CC NS BOLUS. BOLUS IN PROGRESS.
--- NOTE | 2018-02-08 11:38 | NUR ---
RN ROUNDS. PATIENT LYING IN BED WITH COOL CLOTH TO FOREHEAD. RESP EVEN AND UNLABORED. CALL LIGHT WITHIN REACH. NO DISTRESS. RESTING WITH EYES CLOSED, EASILY AROUSED.
--- NOTE | 2018-02-08 12:00 | NUR ---
BOLUS COMPLETED WITH B/P NOW 110/89.
--- NOTE | 2018-02-08 15:35 | NUR ---
RESTUBG QUIETLY, OPENS EYES AND RESPONDS WHEN NAME IS CALLED. STATES NOT MUCH PAIN NOW EARLIER. NO STOOL OR URINE AT THIS TIME.
--- NOTE | 2018-02-08 16:30 | NUR ---
WALKED INTO PTS ROOM TO ADMINISTER INSULIN AND NOTED TO HAVE AGONAL RESPIRATIONS, VERY LABORED AND VERY PALE. RAPID RESPONSE CALLED. PT INTUBATED AND TRANSFERRED TO ICU.
--- NOTE | 2018-02-08 18:47 | NUR ---
2155 PATIENTS NURSE APPROACHED THIS SILO MAN TO COME ASSESS PATIENT BECAUSE THE PATIENT NURSE STATES "SHE DOESNT LOOK GOOD". ENTER THE ROOM AND FOUND PATIENT, DIAPHORETIC, NON-RESPONSIVE TO VERBAL COMMANDS, SHALLOW, AGONAL BREATHING. THIS WRITTER IMMEDIATELY LEFT ROOM AND INSTRUCTED FOR RAPID RESPONSE TO BE CALLED WHILE THIS SILO MAN OBTAINED VITAL SIGN MACHINE AND PUSLE OXIMITER. RAPID RESPONSE TEAM ARRIVED WITH AND TOOK OVER ASSESSMENT OF PATIENT. ASSISTED NEEDED WITH TRANSFER OF PATIENT TO ICU 3076.
--- NOTE | 2018-02-08 20:15 | NUR ---
Family upset and requesting answers regarding patient, attempted to explain with family unsatisfied. track supervisor notified, suggested asking Dr Hogue to speak with family. Dr Hogue paged, will attempt to answer questions.
--- NOTE | 2018-02-08 20:35 | NUR ---
Dr Hogue off unit, family satisfied with explanation given. Family given patient belongings, requests [facility] for services.
--- NOTE | 2018-02-08 21:05 | NUR ---
Michelle contacted and notified of services required, will be arriving in 45-60 mins.
--- NOTE | 2018-02-11 18:53 | OP ---
PATIENT NAME: ZAINAB REYES MEDICAL RECORD: [id number] :55 LOCATION:.[facility] D.2304 ADMISSION DATE:02/08/18 SURGEON: MIRNA MOREAU MD DATE OF OPERATION: 02/08/2018 PREOPERATIVE DIAGNOSIS: Respiratory failure. POSTOPERATIVE DIAGNOSES: 1. Aspiration pneumonia. 2. Cardiopulmonary arrest. PROCEDURES: 1. Endotracheal intubation with a 7.0 mm endotracheal tube. 2. 48 minutes of critical care time excluding the time necessary for procedures. 3. Placement of a proximal tibial interosseous lines times 2. SURGEON: Mirna Moreau MD ASSISTANTS: None. There was a rapid response resuscitation that was called overhead. I accompanied the intensive care crew. We found a patient who was hypopneic. She was "guppy breathing." Her abdomen was distended. She did not appear to be ventilating very well. We began a bag valve mask ventilation. She did have a pulse. We were unable to obtain arterial blood gas and were unable to obtain a pulse oximeter on her extremities. After several minutes of bag valve mask ventilation she was not improved. Again, minimal respiratory effort. GCS was 3. I inserted a Q-tip down her right naris all the way to the nasopharynx and there was no reaction whatsoever, so she would not respond to a noxious stimulus. I elected for endotracheal intubation in order to ventilate the patient and also to protect her airway. She was given 100 mg of succinylcholine. With cricoid pressure held, I was able to easily visualize the cords. A 7.5 endotracheal tube would not fit. A 7.0 endotracheal tube fit nicely. However, prior to that, I had to suction a good bit of bilious material from her hypopharynx and oropharynx. Additionally, during intubation, I could see that some of this bile was in her trachea. I tried to intubate her once with a 7.5 mm endotracheal tube and this was too large. I was then able to easily intubate her with a 7.0 mm endotracheal tube. There was good chest rise bilaterally. Good breath sounds bilaterally. Also, good color change on the CO2 device. We then affixed the endotracheal tube at 23 cm. The patient was attached to an oxygen tank and was conveyed to the intensive care unit. We continue to monitor her for a pulse and she continued to have a pulsatile rhythm. She was transferred to the ICU. She was moved to the ICU bed. I checked again for a pulse and she did have a good pulse at the right groin. The nursing staff asked me to place a central venous line. In the time it took me to go over and get a central venous line box as well as some gloves, the patient lost a pulse. I came to the patient's bedside immediately and the karis chow was called overhead. Dr. Rendon from the Emergency Room came and he took over the resuscitative efforts. During the resuscitation, we lost an IV. I went and got an interosseous kit. I prepped the left tibia and inserted an interosseous line in the anterior portion of the tibia at 90 degrees to the tibia. We flushed the IO line and then aspirated back a bone marrow. We then attached this to an IV catheter and began infusing medications as well as OPERATIVE REPORT [id number] ZAINAB REYES. Later on a second IO line was needed. I elected to place one in the right proximal tibia. I prepped the area inserted an IO line easily here as well. It flushed easily and also aspirated back bone marrow. This was attached to an IV line and medicines were given here as well. The patient was in PEA for most of the time, I think likely was in V-fib once or twice and was shocked. My involvement in the resuscitative efforts included giving some orders to the nurses including the initial orders for medications until Dr. Rendon arrived. Also going and reviewing the patient's chart and providing this information to Dr. Rendon during the karis chow resuscitation. I also reviewed the CT images as well as the CT report. I gave him my analysis of the situation. I also analyzed some of the EKG strips and ordered defibrillation. My time performing critical care on this patient excluding the time for the procedures was 48 minutes. My analysis of the procedure is that this is a patient that had enterocolitis and likely an ileus from this. Due to an elevated lactic acid, I think that she was septic. She has gastroparesis and on the CT scan you could see that she had a very dilated stomach. I do not think that the stomach was decompressed. On the CT scan you could see what appears to be some high attenuation food material within the stomach. I believe that because she lost bowel motility either to do enterocolitis or due to urinary tract infection that she had an ileus and likely was septic. This led to even less gastric motility and food and liquid backed up into her stomach and then she vomited and aspirated and this was the event that led to her demise. TRANSINT:[id number] Voice Confirmation ID: [id number] DOCUMENT ID: [id number] 02/11/2018 Edited to correct nurse plastics errors, dmmiriam. MIRNA MOREAU MD at 1853 CC: [id number] DICTATION DATE: 02/08/181927 UNHAIRER: 02/09/18 0535 DIS IN 02/08/18 [facility] [address] [place] [address]
== END 2018-02-08 18:00 | DRG 871 ==
LOC: D.ER 22:43 → D.M2 02-08 01:57 → D.ICU 02-08 17:38
PROVIDERS: Family Medicine; ADMIT Internal Medicine Nephrology
PROC: 0BH17EZ Insertion of Endotracheal Airway into Trachea, Via Natural or Artificial Opening (ICD-10-PCS; principal; 2018-02-08)
PROC: 5A1935Z Respiratory Ventilation, Less than 24 Consecutive Hours (ICD-10-PCS; 2018-02-08)
PROC: 3E0 Administration, Physiological Systems and Anatomical Regions, Introduction (ICD-10-PCS; 2018-02-08)
DX: A41.9 Sepsis, unspecified organism (principal); J69.0 Pneumonitis due to inhalation of food and vomit; N39.0 Urinary tract infection, site not specified; N17.9 Acute kidney failure, unspecified; K56.7 Ileus, unspecified; K52.9 Noninfective gastroenteritis and colitis, unspecified; I46.9 Cardiac arrest, cause unspecified; I10 Essential (primary) hypertension; D72.829 Elevated white blood cell count, unspecified; E11.40 Type 2 diabetes mellitus with diabetic neuropathy, unspecified; E78.5 Hyperlipidemia, unspecified; I49.01 Ventricular fibrillation; K31.89 Other diseases of stomach and duodenum; E11.43 Type 2 diabetes mellitus with diabetic autonomic (poly)neuropathy; K31.84 Gastroparesis